=== PATIENT | male | born 1940 ===

== ENCOUNTER 2021-09-17 08:20 | Inpatient (IN) | payer MEDICARE, OTHER, SELFPAY ==
[2021-09-17] VITALS (49 sets, daily range): BP systolic 146–216; BP diastolic 66–108; PULSE 54–89; RESP 10–47; TEMP 36.3; O2SAT 89–100; BMI 29.0
--- NOTE | 2021-09-17 08:24 | DI.RAD.S_ITS ---
PROCEDURE: XR HIP W PEL IF DONE RT 2V INDICATIONS: pain and deformity after fall TECHNIQUE: AP pelvis with lateral view(s) of the right hip(s). COMPARISON: [facility], CR, XR PELVIS W BILAT LAT HIPS 3VW, 07/13/2015, 14:19. [facility], CR, XR PELVIS WITH LATERAL HIP RIGHT, 07/03/2017, 14:40. [facility], CT, CT HEAD/BRAIN WO CON, 09/17/2021, 8:36. FINDINGS: Bones: No fractures or dislocations. Pelvic ring appears intact. No suspicious bony lesions. Age-appropriate lower lumbar spine degenerative changes are noted. Right hip arthroplasty hardware is seen. No findings of hardware failure or hardware loosening are seen. Relatively prominent heterotopic bone formation can be seen. The right greater trochanter, which is similar to priors. There is moderate superior joint space narrowing seen of left hip, with associated remodeling changes with subchondral sclerosis and osteophyte formation. Soft tissues: The visualized bowel gas pattern is normal. No suspicious soft tissue calcifications. Residual contrast is seen of the plantar swallowing examination dated 09/15/2021. Central pelvis calcifications seen. IMPRESSION: Unremarkable right hip arthroplasty. Moderate left hip degenerative change. Residual enteric contrast is seen. Dictated by: Luis Antonio Kirk M.D. on 09/17/2021 at 8:00 Approved by: Luis Antonio Kirk M.D. on 09/17/2021 at 8:02
--- NOTE | 2021-09-17 08:30 | DI.CT.S_ITS ---
PROCEDURE: CT HEAD/BRAIN WO CON INDICATIONS: fall on thinners TECHNIQUE: Noncontrast 4.5 mm thick angled axial sections acquired from the foramen magnum to the vertex, with coronal and sagittal reformats. For radiation dose reduction, the following was used: automated exposure control, adjustment of mA and/or kV according to patient size. COMPARISON: [facility], MR, MR BRAIN WITHOUT CONTRAST, 02/05/2020, 15:14. [facility], CT, CT HEAD WITHOUT CONTRAST, 04/28/2020, 18:09. [facility], CT, CT HEAD WITHOUT CONTRAST, 06/01/2020, 6:10. [facility], CR, XR HIP W PEL IF DONE RT 2V, 09/17/2021, 8:16. [facility], CT, CT HEAD WITHOUT CONTRAST, 05/27/2021, 5:26. FINDINGS: Image quality: Excellent. CSF spaces: Basal cisterns are patent. No extra-axial fluid collections. The ventricles are symmetric in size and shape. Brain: No intracranial bleeds or masses. There is cerebral volume loss for age, with resultant ventricular and sulcal prominence. There are periventricular and deep white matter chronic small vessel ischemic changes. There is intracranial internal carotid artery atherosclerosis. Skull and face: Calvarium and visualized facial bones appear intact, without suspicious lesions. Sinuses: Visualized sinuses and mastoids are clear. IMPRESSION: No acute intracranial hemorrhage is seen. No acute intracranial process is seen. Note is made of age-appropriate brain parenchymal volume loss and chronic small vessel ischemic changes. Dictated by: Luis Antonio Kirk M.D. on 09/17/2021 at 8:04 Approved by: Luis Antonio Kirk M.D. on 09/17/2021 at 8:07
--- NOTE | 2021-09-17 08:35 | ED.LOWEXIN ---
HPI - Extremity Injury (Lower) General Chief Complaint: Extremity Injury, Lower Stated Complaint: Rt. Hip deformity Time Seen by Provider: 09/17/21 08:24 Source: patient and EMS Mode of arrival: EMS Limitations: other (Dementia) History of Present Illness HPI Narrative: Patient is an 81-year-old male. Has a POLST form that states DNR we with comfort measures. Brought in by EMS after his Life Alert button was activated this morning after fall. Patient does live at home with his . Patient states that he fell this morning. He is unsure exactly how he fell. He reports right hip pain. He received 10 mg of morphine and 4 mg of Zofran in route by EMS. Patient states he did not hit his head. He is somewhat confused about where he is and what date it is but he does know his month and date. He also knows his name. He denies chest pain and shortness of breath and abdominal pain. His only complaint is right hip pain. EMS reports that his blood pressure was elevated this morning with a systolic greater than 200 however this did improve after pain medication by EMS crew. Was reported that he was recently admitted to [facility] and discharged within the past 24-48 hours. We are waiting on records for this. Related Data Home Medications Medication Instructions Recorded Confirmed albuterol sulfate 90 mcg/actuation 90 mcg INHALATION PRN 09/17/21 09/17/21 aerosol inhaler (ProAir HFA) amoxicillin 875 mg-potassium 1 tab PO BID 09/17/21 09/17/21 clavulanate 125 mg tablet atorvastatin 20 mg tablet (Lipitor) 20 mg PO DAILY 09/17/21 09/17/21 carvedilol 25 mg tablet (Coreg) 25 mg PO BIDWMEAL 09/17/21 09/17/21 digoxin 125 mcg (0.125 mg) tablet 125 mcg PO DAILY 09/17/21 09/17/21 (Lanoxin) empagliflozin 10 mg tablet 10 mg PO DAILY 09/17/21 09/17/21 (Jardiance) ferrous sulfate 325 mg (65 mg 325 mg PO BID 09/17/21 09/17/21 iron) tablet furosemide 40 mg tablet (Lasix) 40 mg PO DAILY 09/17/21 09/17/21 ipratropium bromide 17 2 puff INHALATION TID 09/17/21 09/17/21 mcg/actuation HFA aerosol inhaler (Atrovent HFA) losartan 50 mg tablet (Cozaar) 50 mg PO DAILY 09/17/21 09/17/21 memantine 10 mg tablet (Namenda) 10 mg PO BID 09/17/21 09/17/21 metformin 500 mg tablet 500 mg PO BIDWMEAL 09/17/21 09/17/21 rivaroxaban 20 mg tablet (Xarelto) 20 mg PO DAILY 09/17/21 09/17/21 sertraline 100 mg tablet (Zoloft) 100 mg PO DAILY 09/17/21 09/17/21 umeclidinium 62.5 mcg/actuation 62.5 inh INHALATION DAILY 09/17/21 09/17/21 blister powder for inhalation (Incruse Ellipta) Allergies Allergy/AdvReac Type Severity Reaction Status Date / Time No Known Drug Allergies Allergy Verified 09/17/21 13:04 Review of Systems Constitutional Comments: Denies headache Cardiovascular Comments: Denies chest pain Respiratory Comments: Denies shortness of breath Gastrointestinal Comments: Denies abdominal pain Musculoskeletal Comments: Does have right hip pain Neurologic Comments: Unsure if he is change from baseline mental status Hematologic/Lymphatic On Anticoagulants: Yes Patient History Medical History Congestive heart failure Diabetes Paroxysmal atrial fibrillation Social History (Updated 09/17/21 @ 08:39 by Delmar Meza DO) marital status: lives independently: Yes Exam Initial Vital Signs Initial Vital Signs: Vital Signs Temperature 97.4 F L 09/17/21 08:28 Pulse Rate 77 09/17/21 08:28 Respiratory Rate 18 09/17/21 08:28 Blood Pressure 183/70 H 09/17/21 08:28 Pulse Oximetry 95 09/17/21 08:28 Const General: cooperative, comfortable and No ill appearing HENMT Head: normal to inspection and normocephalic Face and sinus: normal facial exam Eyes General: Yes appearance normal, both eyes and all related structures Resp Effort & Inspection: normal respiratory effort Auscultation: clear to auscultation bilaterally Cardio Rate: regular rate Rhythm: regular rhythm Pulses: dorsalis pedis present bilaterally GI Inspection: normal to inspection Palpation: soft Skin Other: Multiple abrasions and skin wounds. Has a bandage over his right forearm Neuro Other: Patient does move all 4 extremities but very limited movement of right lower extremity because right hip pain. He is alert to person and date and somewhat of the situation but not to the year. Speech is normal. Extrem Other: Upper extremities unremarkable. Patient can wiggle toes bilaterally. Limited range of motion and pain to palpation right hip Psych Appearance: disheveled Scores GCS [place] coma scale eye opening: To sound [place] coma scale verbal response: Confused Jamal coma scale motor response: Obey commands [place] coma scale total score: 13 Course Orders Ordered: ED Orders 09/17/21 08:24 XR hip w pel if done RT 2V Stat 09/17/21 08:30 CT head/brain wo con Stat 09/17/21 08:32 BNP [NT-proBNP (BNP-Adult 18+)] Stat Complete Blood Count AUTO DIFF Stat Comprehensive Metabolic Panel Stat Lipase Stat Troponin & CK Cardiac Panel Stat 09/17/21 09:02 COVID19 -Nasal RAPID/Pre-Proc Stat 09/17/21 09:03 Partial Thromboplastin Time Stat Prothrombin Time INR Stat Type and Screen Stat 09/17/21 09:18 XR knee RT 3V Stat 09/17/21 10:18 ABG [Arterial Blood Gas] Stat 09/17/21 10:20 XR chest 1V Stat 09/17/21 10:21 Consult to LAUNDRY [employer] CLE[employer] COUNTER CLERK - Cleaner Stat Consult to Orthopedic Surgery Stat 09/17/21 10:44 BiPAP Ventilatory Support RT PROTOCOL 09/17/21 11:33 CT pelvis wo con Stat Acetaminophen (Acetaminophen 325 Mg Tablet) 650 mg PO Q6HR PRN PRN Reason: pain, fever Albuterol/Ipratropium (Albuterol/Ipratropium 3 Ml Ampul) 3 ml INH RTQ4HR PRN PRN Reason: Shortness Of Breath Furosemide (Furosemide 40 Mg/4 Ml Vial) 40 mg IV Q12HR PATY Last Admin: 09/17/21 13:51 Dose: 40 mg Documented by: LISA Piperacillin Sod/Tazobactam (Sod 3.375 gm/ Sodium Chloride) 100 mls @ 25 mls/hr IV Q8H PATY Azithromycin 500 mg/ Dextrose 250 mls @ 250 mls/hr IV Q24H PATY Vancomycin HCl (Vancomycin) 1,250 mg in 250 mls @ 250 mls/hr IV Q12H PATY Last Admin: 09/17/21 14:33 Dose: 250 mls/hr Documented by: LISA Methylprednisolone (Methylprednisolone 125 Mg/2 Ml Vial) 60 mg IV DAILY [facility] Vancomycin HCl (Vancomycin Trough) 1 request MISC 1330 ONE Stop: 09/19/21 13:31 Vancomycin HCl (Vancomycin Peak) 1 request MISC 1600 ONE Stop: 09/19/21 16:01 Discontinued Medications Furosemide (Furosemide 40 Mg/4 Ml Vial) 40 mg IV NOW ONE Stop: 09/17/21 11:34 Last Admin: 09/17/21 13:57 Dose: Not Given Documented by: LISA Sodium Chloride (Normal Saline 0.9%) 1,000 mls @ 100 mls/hr IV CONT [facility] Last Infusion: 09/17/21 12:00 Dose: 0 mls/hr Documented by: Admin: 09/17/21 09:01 Dose: 100 mls/hr Documented by: WILBERT Piperacillin Sod/Tazobactam (Sod 4.5 gm/ Sodium Chloride) 100 mls @ 200 mls/hr IV NOW ONE Stop: 09/17/21 13:29 Last Infusion: 09/17/21 14:33 Dose: 0 mls/hr Documented by: Admin: 09/17/21 13:58 Dose: 200 mls/hr Documented by: LISA Methylprednisolone (Methylprednisolone 125 Mg/2 Ml Vial) 125 mg IV NOW ONE Stop: 09/17/21 11:34 Last Admin: 09/17/21 13:51 Dose: 125 mg Documented by: LISA Vital Signs Vital signs: Vital Signs - 8 hr 09/17/21 08:28 09/17/21 08:32 09/17/21 08:56 Temperature 97.4 F L Pulse Rate 77 67 66 Respiratory Rate 18 26 H Blood Pressure 183/70 H 181/76 H Pulse Oximetry 95 95 95 09/17/21 09:00 09/17/21 09:30 09/17/21 09:55 Temperature Pulse Rate 73 70 67 Respiratory Rate 26 H 22 13 Blood Pressure 184/87 H Pulse Oximetry 95 96 95 09/17/21 10:00 09/17/21 10:30 09/17/21 10:31 Temperature Pulse Rate 77 72 79 Respiratory Rate 21 25 H 20 Blood Pressure 197/92 H Pulse Oximetry 95 98 98 09/17/21 10:40 09/17/21 10:42 09/17/21 11:00 Temperature Pulse Rate 68 71 72 Respiratory Rate 22 22 18 Blood Pressure 216/93 H 196/108 H 213/99 H Pulse Oximetry 98 97 98 09/17/21 11:30 09/17/21 11:31 09/17/21 12:00 Temperature Pulse Rate 63 66 89 Respiratory Rate 20 20 17 Blood Pressure 175/78 H 179/80 H Pulse Oximetry 97 97 98 09/17/21 12:20 Temperature 97.4 F L Pulse Rate 70 Respiratory Rate 29 H Blood Pressure 181/82 H Pulse Oximetry 98 MDM - Extremity Injury (Lower) Lab Data Attestation: I reviewed the patient's lab results. Result diagrams: 09/17/21 08:32 09/17/21 08:32 Labs: Lab Results 09/17/21 09/17/21 09/17/21 Range/Units 08:32 08:32 08:32 WBC 11.8 H (4.5-11.0) X10^3/uL RBC 5.99 H (4.5-5.9) X10^6/uL Hgb 16.6 (13.5-17.5) g/dL Hct 50.0 (41-53) % MCV 83.4 (80-100) fL MCH 27.8 (26-34) PG MCHC 33.3 (30-36) % RDW 16.1 H (11.6-14.8) % Plt Count 234 (150-400) X10^3/uL Neut % (Auto) 74.6 (50-75) % Lymph % (Auto) 12.5 L (25-40) % [place] % (Auto) 9.0 (3-14) % Eos % (Auto) 3.4 (2-4) % Baso % (Auto) 0.5 (0-2) % Neut # (Auto) 8800 H (8938-3263) /uL Lymph # (Auto) 1500 (1662-4103) /uL [place] # (Auto) 1100 H (0-900) /uL Eos # (Auto) 400 (0-450) /uL Baso # (Auto) 100 (0-100) /uL PT (10.1-12.7) SECONDS INR (0.9-1.3) APTT (26.4-36.2) SECONDS ABG pH (7.35-7.45) ABG pCO2 (35-45) mmHg ABG pO2 (80-100) mmHg ABG HCO3 (22-26) mmol/L ABG Total CO2 (21-31) mmol/L ABG O2 Saturation (95-100) % ABG Base Excess (-2-2) mmol/L FiO2 Sodium 145 (137-145) mmol/L Potassium 3.6 (3.4-5.1) mmol/L Chloride 106 (98-107) mmol/L Carbon Dioxide 30 (22-32) mmol/L BUN 19 (9-20) mg/dL Creatinine 0.71 (0.66-1.25) mg/dL Estimated GFR > 60 (>60) mL/min BUN/Creatinine Ratio 26.8 H (6-22) Glucose 146 H (80-110) mg/dL Calcium 9.6 (8.4-10.2) mg/dL Total Bilirubin 1.2 (0.2-1.3) mg/dL AST 24 (17-59) IU/L ALT 16 (<50) IU/L Alkaline Phosphatase 90 (38-126) U/L Total Creatine Kinase (55-170) U/L CK-MB (CK-2) CK-MB (CK-2) Rel Index Troponin I (0.01-0.034) ng/mL NT-Pro-B Natriuret Pep 4980 H (<450) pg/mL Total Protein 7.6 (6.3-8.2) g/dL Albumin 4.5 (3.5-5.0) g/dL Globulin 3.1 (1.7-4.1) g/dL Albumin/Globulin Ratio 1.5 (1.0-2.8) Lipase 206 (23-300) U/L Procalcitonin (<0.5) ng/mL SARS-CoV-2 (PCR) (Negative) Blood Type Antibody Screen 09/17/21 09/17/21 09/17/21 Range/Units 08:32 09:02 09:03 WBC (4.5-11.0) X10^3/uL RBC (4.5-5.9) X10^6/uL Hgb (13.5-17.5) g/dL Hct (41-53) % MCV (80-100) fL MCH (26-34) PG MCHC (30-36) % RDW (11.6-14.8) % Plt Count (150-400) X10^3/uL Neut % (Auto) (50-75) % Lymph % (Auto) (25-40) % [place] % (Auto) (3-14) % Eos % (Auto) (2-4) % Baso % (Auto) (0-2) % Neut # (Auto) (7760-5410) /uL Lymph # (Auto) (2173-2155) /uL [place] # (Auto) (0-900) /uL Eos # (Auto) (0-450) /uL Baso # (Auto) (0-100) /uL PT 18.7 H (10.1-12.7) SECONDS INR 1.7 H (0.9-1.3) APTT 43 H (26.4-36.2) SECONDS ABG pH (7.35-7.45) ABG pCO2 (35-45) mmHg ABG pO2 (80-100) mmHg ABG HCO3 (22-26) mmol/L ABG Total CO2 (21-31) mmol/L ABG O2 Saturation (95-100) % ABG Base Excess (-2-2) mmol/L FiO2 Sodium (137-145) mmol/L Potassium (3.4-5.1) mmol/L Chloride (98-107) mmol/L Carbon Dioxide (22-32) mmol/L BUN (9-20) mg/dL Creatinine (0.66-1.25) mg/dL Estimated GFR (>60) mL/min BUN/Creatinine Ratio (6-22) Glucose (80-110) mg/dL Calcium (8.4-10.2) mg/dL Total Bilirubin (0.2-1.3) mg/dL AST (17-59) IU/L ALT (<50) IU/L Alkaline Phosphatase (38-126) U/L Total Creatine Kinase 76 (55-170) U/L CK-MB (CK-2) TNP CK-MB (CK-2) Rel Index TNP Troponin I 0.037 H (0.01-0.034) ng/mL NT-Pro-B Natriuret Pep (<450) pg/mL Total Protein (6.3-8.2) g/dL Albumin (3.5-5.0) g/dL Globulin (1.7-4.1) g/dL Albumin/Globulin Ratio (1.0-2.8) Lipase (23-300) U/L Procalcitonin (<0.5) ng/mL SARS-CoV-2 (PCR) Negative (Negative) Blood Type Antibody Screen 09/17/21 09/17/21 09/17/21 Range/Units 09:03 10:07 10:18 WBC (4.5-11.0) X10^3/uL RBC (4.5-5.9) X10^6/uL Hgb (13.5-17.5) g/dL Hct (41-53) % MCV (80-100) fL MCH (26-34) PG MCHC (30-36) % RDW (11.6-14.8) % Plt Count (150-400) X10^3/uL Neut % (Auto) (50-75) % Lymph % (Auto) (25-40) % [place] % (Auto) (3-14) % Eos % (Auto) (2-4) % Baso % (Auto) (0-2) % Neut # (Auto) (4338-0562) /uL Lymph # (Auto) (1557-1666) /uL [place] # (Auto) (0-900) /uL Eos # (Auto) (0-450) /uL Baso # (Auto) (0-100) /uL PT (10.1-12.7) SECONDS INR (0.9-1.3) APTT (26.4-36.2) SECONDS ABG pH 7.28 L* (7.35-7.45) ABG pCO2 57.0 H (35-45) mmHg ABG pO2 86 (80-100) mmHg ABG HCO3 27 H (22-26) mmol/L ABG Total CO2 29 (21-31) mmol/L ABG O2 Saturation 95 (95-100) % ABG Base Excess 0.0 (-2-2) mmol/L FiO2 28 Sodium (137-145) mmol/L Potassium (3.4-5.1) mmol/L Chloride (98-107) mmol/L Carbon Dioxide (22-32) mmol/L BUN (9-20) mg/dL Creatinine (0.66-1.25) mg/dL Estimated GFR (>60) mL/min BUN/Creatinine Ratio (6-22) Glucose (80-110) mg/dL Calcium (8.4-10.2) mg/dL Total Bilirubin (0.2-1.3) mg/dL AST (17-59) IU/L ALT (<50) IU/L Alkaline Phosphatase (38-126) U/L Total Creatine Kinase (55-170) U/L CK-MB (CK-2) CK-MB (CK-2) Rel Index Troponin I (0.01-0.034) ng/mL NT-Pro-B Natriuret Pep (<450) pg/mL Total Protein (6.3-8.2) g/dL Albumin (3.5-5.0) g/dL Globulin (1.7-4.1) g/dL Albumin/Globulin Ratio (1.0-2.8) Lipase (23-300) U/L Procalcitonin 0.07 (<0.5) ng/mL SARS-CoV-2 (PCR) (Negative) Blood Type B Positive Antibody Screen Negative Imaging Data Extremity x-ray #1: Radiologist's Impression: [address] [address] XRay Report Signed Patient: Tulio Wright MR#: [id number] : 1940 Acct:[id number] Age/Sex: 81 / M Date of Service: 09/17/21 Loc: ED Accession Number: [id number] ?? Procedure: XR hip w pel if done RT 2V Ordering Provider: Delmar Meza D.O. PROCEDURE:? XR HIP W PEL IF DONE RT 2V ? INDICATIONS:? pain and deformity after fall ? TECHNIQUE:? AP pelvis with lateral view(s) of the right hip(s).? ? COMPARISON:? [facility], CR, XR PELVIS W BILAT LAT HIPS 3VW, 07/13/2015, 14:19.? [facility], CR, XR PELVIS WITH LATERAL HIP RIGHT, 07/03/2017, 14:40.? [facility], CT, CT HEAD/BRAIN WO CON, 09/17/2021, 8:36. ? FINDINGS:? ? Bones:? No fractures or dislocations.? Pelvic ring appears intact.? No suspicious bony lesions.? Age-appropriate lower lumbar spine degenerative changes are noted. ? Right hip arthroplasty hardware is seen.? No findings of hardware failure or hardware loosening are seen.? Relatively prominent heterotopic bone formation can be seen.? The right greater trochanter, which is similar to priors. ? There is moderate superior joint space narrowing seen of left hip, with associated remodeling changes with subchondral sclerosis and osteophyte formation.? ? ? Soft tissues:? The visualized bowel gas pattern is normal.? No suspicious soft tissue calcifications.? Residual contrast is seen of the plantar swallowing examination dated 09/15/2021.? Central pelvis calcifications seen. ? ? IMPRESSION:? Unremarkable right hip arthroplasty. ? Moderate left hip degenerative change. ? Residual enteric contrast is seen. ? ? ? Dictated by: Luis Antonio Kirk M.D. on 09/17/2021 at 8:00 ? ? Approved by: Luis Antonio Kirk M.D. on 09/17/2021 at 8:02? CT scan - head: Radiologist's Impression: [place] [address] CT Scan Report Signed Patient: Tulio Wright MR#: [id number] : 1940 Acct:[id number] Age/Sex: 81 / M Date of Service: 09/17/21 Loc: ED Accession Number: [id number] ?? Procedure: CT head/brain wo con Ordering Provider: Delmar Meza D.O. PROCEDURE:? CT HEAD/BRAIN WO CON ? INDICATIONS:? fall on thinners ? TECHNIQUE:? Noncontrast 4.5 mm thick angled axial sections acquired from the foramen magnum to the vertex, with coronal and sagittal reformats.? For radiation dose reduction, the following was used:? automated exposure control, adjustment of mA and/or kV according to patient size.? ? COMPARISON:? [facility], MR, MR BRAIN WITHOUT CONTRAST, 02/05/2020, 15:14.? [facility], CT, CT HEAD WITHOUT CONTRAST, 04/28/2020, 18:09.? [facility], CT, CT HEAD WITHOUT CONTRAST, 06/01/2020, 6:10.? [facility], CR, XR HIP W PEL IF DONE RT 2V, 09/17/2021, 8:16.? [facility], CT, CT HEAD WITHOUT CONTRAST, 05/27/2021, 5:26. ? FINDINGS:? Image quality:? Excellent.? ? CSF spaces:? Basal cisterns are patent.? No extra-axial fluid collections.? The ventricles are symmetric in size and shape.? ? Brain:? No intracranial bleeds or masses.? There is cerebral volume loss for age, with resultant ventricular and sulcal prominence.? There are periventricular and deep white matter chronic small vessel ischemic changes.? There is intracranial internal carotid artery atherosclerosis.? ? Skull and face:? Calvarium and visualized facial bones appear intact, without suspicious lesions.? ? Sinuses:? Visualized sinuses and mastoids are clear.? ? ? IMPRESSION:? No acute intracranial hemorrhage is seen.? ? No acute intracranial process is seen.? ? Note is made of age-appropriate brain parenchymal volume loss and chronic small vessel ischemic changes. ? ? Dictated by: Luis Antonio Kirk M.D. on 09/17/2021 at 8:04 ? ? Approved by: Luis Antonio Kirk M.D. on 09/17/2021 at 8:07 Extremity x-ray #2: Radiologist's Impression: [place] [address] XRay Report Signed Patient: Tulio Wright MR#: [id number] : 1940 Acct:[id number] Age/Sex: 81 / M Date of Service: 09/17/21 Loc: ED Accession Number: [id number] ?? Procedure: XR knee RT 3V Ordering Provider: Delmar Meza D.O. PROCEDURE:? XR KNEE RT 3V ? INDICATIONS:? pain after fall ? TECHNIQUE:? 3 views of the knee were acquired.? ? COMPARISON:? [facility], CR, XR KNEE BILATERAL STANDING UP, 12/05/2015, 15:42.? [facility], CR, XR KNEE 3VW LT, 01/14/2017, 10:28.? [facility], CR, XR KNEE BILATERAL STANDING UP, 12/25/2016, 15:48.? [facility], CR, XR KNEE 1 OR 2VW RT, 12/25/2016, 15:48. ? FINDINGS:? ? Bones:? Along the superior lateral aspect of the patella, there is a chronic cleft seen, which has been previously identified, including in 2017.? No acute appearing fractures or dislocations.? No suspicious bony lesions.? ? There is mild medial femorotibial joint space narrowing seen, with associated remodeling changes including subchondral sclerosis and osteophyte formation along the jointline.? On the sunrise view, there is at least moderate patellofemoral joint space narrowing seen. Osteophyte formation can be seen along the margins of the patella. ? Soft tissues:? There is a minimal to mild joint effusion.? No suspicious soft tissue calcifications.? ? ? IMPRESSION:? Minimal to mild joint effusion. ? No jase, acute bony abnormality can be seen. ? 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 ? Underlying degenerative changes are seen. ? If it would be helpful for clinical management decision making, please consider a dedicated, scheduled knee MRI for further evaluation (assuming that there is no contraindication).? ? ? Dictated by: Luis Antonio Kirk M.D. on 09/17/2021 at 8:59 ? ? Approved by: Luis Antonio Kirk M.D. on 09/17/2021 at 9:03? Chest x-ray: Radiologist's Impression: [address] [address] XRay Report Signed Patient: Tulio Wright MR#: [id number] : 1940 Acct:[id number] Age/Sex: 81 / M Date of Service: 09/17/21 Loc: ED Accession Number: [id number] ?? Procedure: XR chest 1V Ordering Provider: Delmar Meza D.O. PROCEDURE:? XR CHEST 1V ? INDICATIONS:? Short of breath ? TECHNIQUE:? One view of the chest was acquired.? ? COMPARISON:? [facility], CR, XR CHEST 1 VIEW, 05/27/2021, 6:10.? [facility], CR, XR CHEST 1 VIEW, 09/12/2021, 10:55.? [facility], CR, XR CHEST 1 VIEW, 09/13/2021, 14:26. ? FINDINGS:? ? Surgical changes and devices:? None.? ? Lungs and pleura:? An incomplete inspiratory result is noted, causing a crowded appearance to the lung markings.? No focal infiltrates are seen.? No pneumothorax or significant pleural effusions are seen. ? ? Mediastinum:? Mediastinal contours appear normal.? Heart size is mildly to moderately enlarged.? ? Bones and chest wall:? No suspicious bony lesions.? Age-appropriate bony degenerative changes are seen. ? Overlying soft tissues appear unremarkable.? ? ? IMPRESSION:? Low lung volumes, without a significant pulmonary abnormality seen. ? [id number] cardiomegaly again seen. ? ? ? Dictated by: Luis Antonio Kirk M.D. on 09/17/2021 at 9:36 ? ? Approved by: Luis Antonio Kirk M.D. on 09/17/2021 at 9:3 MDM Narrative Medical decision making narrative: Patient was very somnolent upon arrival. Was not hypoxic. ABG shows respiratory acidosis. He is placed on BiPAP and he tolerated this very well. I did have a discussion with the patient's over the phone. She did confirm that the patient is a DNR/DNI however she was O care with the noninvasive BiPAP. Patient's x-ray show no acute injury however he does seem to the continue to have significant discomfort with movement of his right hip. I did discuss this with Dr. Elizalde with Orthopedics who recommended a CT scan of his pelvis. Given the patient's respiratory status he does require admission to the hospital for further evaluation. Discussed the case with Dr. Christian with medicine service who will admit for further evaluation and treatment. I did discuss the need for admission with the patient's who also expressed understanding and agreement. Discharge Plan Departure Patient Disposition: Admitted as Observation Clinical Impression: Acute pain of right hip, Hypoxia, Fall, Confusion Admit Date/Time: 09/17/21 12:24 Admit Provider: Brien Christian
[2021-09-17 08:37] LABS: Add Manual Diff / Slide Review NO; Basophils Absolute Auto 100 /uL (0-100); Basophils Percent Auto 0.5 % (0-2); Eosinophils Absolute Auto 400 /uL (0-450); Eosinophils Percent Auto 3.4 % (2-4); Hemoglobin 16.6 g/dL (13.5-17.5); Lymphocytes Absolute Auto 1500 /uL (1100-4500); Lymphocytes Percent Auto 12.5 % (25-40); Mean Corpuscular HGB Conc 33.3 % (30-36); Mean Corpuscular Hemoglobin 27.8 PG (26-34); Mean Corpuscular Volume 83.4 fL (80-100); Monocytes Absolute Auto 1100 /uL (0-900); Neutrophils Absolute Auto 8800 /uL (1500-7000); Neutrophils Percent Auto 74.6 % (50-75); Platelet Count 234 X10^3/uL (150-400); Red Blood Cell Count 5.99 X10^6/uL (4.5-5.9); Red Cell Distribution Width 16.1 % (11.6-14.8); White Blood Cell Count 11.8 X10^3/uL (4.5-11.0)
[2021-09-17 08:50] LABS: Alanine Aminotransferase 16 IU/L (<50); Albumin 4.5 g/dL (3.5-5.0); Albumin Globulin Ratio 1.5 (1.0-2.8); Alkaline Phosphatase 90 U/L (38-126); Aspartate Aminotransferase 24 IU/L (17-59); BUN Creatinine Ratio 26.8 (6-22); Bilirubin Total 1.2 mg/dL (0.2-1.3); Blood Urea Nitrogen 19 mg/dL (9-20); Calcium 9.6 mg/dL (8.4-10.2); Carbon Dioxide 30 mmol/L (22-32); Chloride 106 mmol/L (98-107); Estimated Glomerular Filt Rate > 60 mL/min (>60); Globulin 3.1 g/dL (1.7-4.1); Glucose 146 mg/dL (80-110); HEMOLYSIS 18 (0-50); Lipase 206 U/L (23-300); Potassium 3.6 mmol/L (3.4-5.1); Sodium 145 mmol/L (137-145); Total Protein 7.6 g/dL (6.3-8.2)
[2021-09-17] MEDS: SODIUM CHLORIDE 0.9% 1,000 ML 100 ML IV (09:01)
--- NOTE | 2021-09-17 09:18 | DI.RAD.S_ITS ---
PROCEDURE: XR KNEE RT 3V INDICATIONS: pain after fall TECHNIQUE: 3 views of the knee were acquired. COMPARISON: [facility], CR, XR KNEE BILATERAL STANDING UP, 12/05/2015, 15:42. [facility], CR, XR KNEE 3VW LT, 01/14/2017, 10:28. [facility], CR, XR KNEE BILATERAL STANDING UP, 12/25/2016, 15:48. [facility], CR, XR KNEE 1 OR 2VW RT, 12/25/2016, 15:48. 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 No acute appearing fractures or dislocations. No suspicious bony lesions. There is mild medial femorotibial joint space narrowing seen, with associated remodeling changes including subchondral sclerosis and osteophyte formation along the jointline. On the sunrise view, there is at least moderate patellofemoral joint space narrowing seen. Osteophyte formation can be seen along the margins of the patella. Soft tissues: There is a minimal to mild joint effusion. No suspicious soft tissue calcifications. IMPRESSION: Minimal to mild joint effusion. No jase, acute bony abnormality can be seen. 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 Underlying degenerative changes are seen. If it would be helpful for clinical management decision making, please consider a dedicated, scheduled knee MRI for further evaluation (assuming that there is no contraindication). Dictated by: Luis Antonio Kirk M.D. on 09/17/2021 at 8:59 Approved by: Luis Antonio Kirk M.D. on 09/17/2021 at 9:03
[2021-09-17 09:21] LABS: COVID19 -Nasal RAPID Negative (Negative)
[2021-09-17 09:24] LABS: INR 1.7 (0.9-1.3); Prothrombin Time 18.7 SECONDS (10.1-12.7)
[2021-09-17 09:27] LABS: PTT Partial Thromboplastin Tim 43 SECONDS (26.4-36.2)
--- NOTE | 2021-09-17 09:35 | PC.NURSE ---
pain increased when turning leg/knee inward or trying to bend/unbend knee for additional xrays
--- NOTE | 2021-09-17 10:20 | DI.RAD.S_ITS ---
PROCEDURE: XR CHEST 1V INDICATIONS: Short of breath TECHNIQUE: One view of the chest was acquired. COMPARISON: [facility], CR, XR CHEST 1 VIEW, 05/27/2021, 6:10. [facility], CR, XR CHEST 1 VIEW, 09/12/2021, 10:55. [facility], CR, XR CHEST 1 VIEW, 09/13/2021, 14:26. FINDINGS: Surgical changes and devices: None. Lungs and pleura: An incomplete inspiratory result is noted, causing a crowded appearance to the lung markings. No focal infiltrates are seen. No pneumothorax or significant pleural effusions are seen. Mediastinum: Mediastinal contours appear normal. Heart size is mildly to moderately enlarged. Bones and chest wall: No suspicious bony lesions. Age-appropriate bony degenerative changes are seen. Overlying soft tissues appear unremarkable. IMPRESSION: Low lung volumes, without a significant pulmonary abnormality seen. [id number] cardiomegaly again seen. Dictated by: Luis Antonio Kirk M.D. on 09/17/2021 at 9:36 Approved by: Luis Antonio Kirk M.D. on 09/17/2021 at 9:37
--- NOTE | 2021-09-17 10:50 | PC.NURSE ---
see RT charging for BIPAP in AVAP's mode, 28% FiO2 delivery
[2021-09-17 10:52] LABS: Fractionated Inspired Oxygen 28; HCO3 ABG 27 mmol/L (22-26); Oxygen Saturation ABG 95 % (95-100); PO2 ABG 86 mmHg (80-100); TCO2 ABG 29 mmol/L (21-31)
[2021-09-17 10:58] LABS: Creatine Kinase 76 U/L (55-170)
--- NOTE | 2021-09-17 10:59 | RT ---
BIPAP AVAPS mode: targeted VT 550, RR 16, IPAP min 12, IPAP max 25, fio2 28%. Pt wears 2L NC at baseline. Has CPAP at home but unsure if he is compliant and unsure of settings.
[2021-09-17 11:08] LABS: NT-proBNP (BNP-Adult 18+) 4980 pg/mL (<450)
[2021-09-17 11:10] LABS: Troponin I 0.037 ng/mL (0.01-0.034)
--- NOTE | 2021-09-17 11:33 | DI.CT.S_ITS ---
PROCEDURE: CT PEL WO CON INDICATIONS: R hip pain after fall no fx on XR Ortho wants CT TECHNIQUE: Noncontrast 3 mm axial sections acquired through the bony pelvis, with coronal and sagittal reformatting. COMPARISON: [facility], CR, XR PELVIS W BILAT LAT HIPS 3VW, 07/13/2015, 14:19. [facility], CR, XR HIP W PEL IF DONE RT 2V, 09/17/2021, 8:16. [facility], CR, XR CHEST 1V, 09/17/2021, 10:22. FINDINGS: Image quality: There is artifact associated with the metallic hardware. Artifact from the metallic hardware is reduced by metal reconstruction algorithm. Bones: Right hip arthroplasty hardware is seen. No findings of hardware failure or hardware loosening are seen. No fractures of the bones of the pelvis can be seen. No proximal femur fracture can be seen. No dislocation. Relatively prominent heterotopic bone formation can be seen superior to the right greater trochanter, which is similar to prior plain films. There is irregular bone seen along the lateral aspect of the left acetabulum as well. Age-appropriate lower lumbar spine degenerative changes are noted. Soft tissues: Residual contrast can be seen within the colon. No dilated loops of small bowel are seen. A mild periumbilical hernia is seen, containing fat. No free air or significant free fluid can be seen. Prostate clips are seen. Bilateral fat containing inguinal hernias are seen, left larger than right. Atherosclerotic calcification is noted. IMPRESSION: No acute fractures are seen. Right hip arthroplasty hardware, without complication seen. Relatively prominent heterotopic bone formation is seen superior to the right greater trochanter. Stable abnormal bony overgrowth can be seen involving the lateral aspect the left acetabulum. Incidental note is made of: Fat containing periumbilical hernia Prostate clips Fat containing bilateral inguinal hernias Residual contrast within the colon Dictated by: Luis Antonio Kirk M.D. on 09/17/2021 at 11:27 Approved by: Luis Antonio Kirk M.D. on 09/17/2021 at 11:32
--- NOTE | 2021-09-17 12:25 | PM.CN ---
History of Present Illness Consult details Date Patient Seen: 09/17/21 Time Patient Seen: 12:10 Chief complaint: Rt. 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 He had a fall today. He was brought in by EMS with problems with right hip pain. He also has multiple medical problems. He is a DNR patient who was having some respiratory difficulties. Was evaluated in the emergency room and had CT scan and plain x-rays of his pelvis were obtained. Meds Home Medications and Allergies Home Medications Medication Instructions Recorded Confirmed Type albuterol sulfate 90 mcg/actuation 90 mcg INHALATION PRN 09/17/21 09/17/21 History aerosol inhaler (ProAir HFA) amoxicillin 875 mg-potassium 1 tab PO BID 09/17/21 09/17/21 History clavulanate 125 mg tablet atorvastatin 20 mg tablet (Lipitor) 20 mg PO DAILY 09/17/21 09/17/21 History carvedilol 25 mg tablet (Coreg) 25 mg PO BIDWMEAL 09/17/21 09/17/21 History digoxin 125 mcg (0.125 mg) tablet 125 mcg PO DAILY 09/17/21 09/17/21 History (Lanoxin) empagliflozin 10 mg tablet 10 mg PO DAILY 09/17/21 09/17/21 History (Jardiance) ferrous sulfate 325 mg (65 mg 325 mg PO BID 09/17/21 09/17/21 History iron) tablet furosemide 40 mg tablet (Lasix) 40 mg PO DAILY 09/17/21 09/17/21 History ipratropium bromide 17 2 puff INHALATION TID 09/17/21 09/17/21 History mcg/actuation HFA aerosol inhaler (Atrovent HFA) losartan 50 mg tablet (Cozaar) 50 mg PO DAILY 09/17/21 09/17/21 History memantine 10 mg tablet (Namenda) 10 mg PO BID 09/17/21 09/17/21 History metformin 500 mg tablet 500 mg PO BIDWMEAL 09/17/21 09/17/21 History rivaroxaban 20 mg tablet (Xarelto) 20 mg PO DAILY 09/17/21 09/17/21 History sertraline 100 mg tablet (Zoloft) 100 mg PO DAILY 09/17/21 09/17/21 History umeclidinium 62.5 mcg/actuation 62.5 inh INHALATION DAILY 09/17/21 09/17/21 History blister powder for inhalation (Incruse Ellipta) Review of Systems Review of Systems Narrative: He is somnolent but arousable to stimulation review of systems is really not obtainable. Exam Vital Signs (past 8 hours): - 09/17/21 08:28 09/17/21 08:32 09/17/21 08:56 Temperature 97.4 F L Pulse Rate 77 67 66 Respiratory Rate 18 26 H Blood Pressure 183/70 H 181/76 H Pulse Oximetry 95 95 95 09/17/21 09:00 09/17/21 09:30 09/17/21 09:55 Temperature Pulse Rate 73 70 67 Respiratory Rate 26 H 22 13 Blood Pressure 184/87 H Pulse Oximetry 95 96 95 09/17/21 10:00 09/17/21 10:30 09/17/21 10:31 Temperature Pulse Rate 77 72 79 Respiratory Rate 21 25 H 20 Blood Pressure 197/92 H Pulse Oximetry 95 98 98 09/17/21 10:40 09/17/21 10:42 09/17/21 11:00 Temperature Pulse Rate 68 71 72 Respiratory Rate 22 22 18 Blood Pressure 216/93 H 196/108 H 213/99 H Pulse Oximetry 98 97 98 09/17/21 11:30 09/17/21 11:31 Temperature Pulse Rate 63 66 Respiratory Rate 20 20 Blood Pressure 175/78 H Pulse Oximetry 97 97 Fraction of Inspired Oxygen 28 Oxygen Delivery Method BiPAP Oxygen Flow Rate 6 Narrative Exam Narrative: He is on BiPAP but is arousable she does have slight grimacing with range of motion of the right hip, right lower extremity shows no evidence of shortening there is a healed scar, as does mild pain with internal rotation of his right, right knee shows no evidence of a contusion there is no joint effusion there is acceptable alignment and no crepitation with range of motion, skin is intact no obvious significant soft tissue swelling Objective Labs Result Diagrams: 09/17/21 08:32 09/17/21 08:32 Labs: Laboratory Results - last 24 hr 09/17/21 09/17/21 09/17/21 08:32 08:32 08:32 WBC 11.8 H RBC 5.99 H Hgb 16.6 Hct 50.0 MCV 83.4 MCH 27.8 MCHC 33.3 RDW 16.1 H Plt Count 234 Neut % (Auto) 74.6 Lymph % (Auto) 12.5 L [place] % (Auto) 9.0 Eos % (Auto) 3.4 Baso % (Auto) 0.5 Neut # (Auto) 8800 H Lymph # (Auto) 1500 [place] # (Auto) 1100 H Eos # (Auto) 400 Baso # (Auto) 100 PT INR APTT ABG pH ABG pCO2 ABG pO2 ABG HCO3 ABG Total CO2 ABG O2 Saturation ABG Base Excess FiO2 Sodium 145 Potassium 3.6 Chloride 106 Carbon Dioxide 30 BUN 19 Creatinine 0.71 Estimated GFR > 60 BUN/Creatinine Ratio 26.8 H Glucose 146 H Calcium 9.6 Total Bilirubin 1.2 AST 24 ALT 16 Alkaline Phosphatase 90 Total Creatine Kinase CK-MB (CK-2) CK-MB (CK-2) Rel Index Troponin I NT-Pro-B Natriuret Pep 4980 H Total Protein 7.6 Albumin 4.5 Globulin 3.1 Albumin/Globulin Ratio 1.5 Lipase 206 SARS-CoV-2 (PCR) Blood Type Antibody Screen 09/17/21 09/17/21 09/17/21 08:32 09:02 09:03 WBC RBC Hgb Hct MCV MCH MCHC RDW Plt Count Neut % (Auto) Lymph % (Auto) [place] % (Auto) Eos % (Auto) Baso % (Auto) Neut # (Auto) Lymph # (Auto) [place] # (Auto) Eos # (Auto) Baso # (Auto) PT 18.7 H INR 1.7 H APTT 43 H ABG pH ABG pCO2 ABG pO2 ABG HCO3 ABG Total CO2 ABG O2 Saturation ABG Base Excess FiO2 Sodium Potassium Chloride Carbon Dioxide BUN Creatinine Estimated GFR BUN/Creatinine Ratio Glucose Calcium Total Bilirubin AST ALT Alkaline Phosphatase Total Creatine Kinase 76 CK-MB (CK-2) TNP CK-MB (CK-2) Rel Index TNP Troponin I 0.037 H NT-Pro-B Natriuret Pep Total Protein Albumin Globulin Albumin/Globulin Ratio Lipase SARS-CoV-2 (PCR) Negative Blood Type Antibody Screen 09/17/21 09/17/21 09:03 10:18 WBC RBC Hgb Hct MCV MCH MCHC RDW Plt Count Neut % (Auto) Lymph % (Auto) [place] % (Auto) Eos % (Auto) Baso % (Auto) Neut # (Auto) Lymph # (Auto) [place] # (Auto) Eos # (Auto) Baso # (Auto) PT INR APTT ABG pH 7.28 L* ABG pCO2 57.0 H ABG pO2 86 ABG HCO3 27 H ABG Total CO2 29 ABG O2 Saturation 95 ABG Base Excess 0.0 FiO2 28 Sodium Potassium Chloride Carbon Dioxide BUN Creatinine Estimated GFR BUN/Creatinine Ratio Glucose Calcium Total Bilirubin AST ALT Alkaline Phosphatase Total Creatine Kinase CK-MB (CK-2) CK-MB (CK-2) Rel Index Troponin I NT-Pro-B Natriuret Pep Total Protein Albumin Globulin Albumin/Globulin Ratio Lipase SARS-CoV-2 (PCR) Blood Type B Positive Antibody Screen Negative x-rays AP pelvis shows a right total hip arthroplasty with no evidence of fracture or dislocation there is acceptable overall alignment, there is moderate heterotopic ossification, 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 He obviously has multiple other medical problems currently. He may have an occult pelvic or acetabular fracture which was not visualized on the plain radiograph. It might be reasonable to get a CT scan of his pelvis if his medical conditions stabilized. Time Spent With Patient Critical Care time: I spent a total of [] minutes of critical care time on this patient's care today; this time is exclusive of procedural time.
[2021-09-17 13:00] LABS: HCO3 ABG 26 mmol/L (22-26); PCO2 ABG 51.1 mmHg (35-45); PO2 ABG 87 mmHg (80-100); pH ABG 7.31 (7.35-7.45)
[2021-09-17 13:01] LABS: Fractionated Inspired Oxygen 28; Oxygen Saturation ABG 96 % (95-100); TCO2 ABG 27 mmol/L (21-31)
[2021-09-17 13:18] LABS: Procalcitonin 0.07 ng/mL (<0.5)
[2021-09-17] MEDS: FUROSEMIDE 40 MG/4 ML VIAL IV ×2 (13:51→20:42)
[2021-09-17] MEDS: methylPREDNISolone 125 MG/2 ML VIAL IV (13:51)
--- NOTE | 2021-09-17 13:55 | P.TELICUCN_ITS ---
History of Present Illness Consult details Chief complaint: Rt. Hip deformity :: This patient was seen via real time interactive two-way audiovisual telecommunication. seen pt on bipap more awake [facility] Medical History Congestive heart failure Diabetes Paroxysmal atrial fibrillation Social History (Updated 09/17/21 @ 08:39 by Delmar Meza DO) marital status: lives independently: Yes Current Medications Current Medications Medications: Home Medications albuterol sulfate 90 mcg/actuation aerosol inhaler (ProAir HFA) 90 mcg INHALATION PRN 09/17/21 [History Confirmed 09/17/21] amoxicillin 875 mg-potassium clavulanate 125 mg tablet 1 tab PO BID 09/17/21 [ History Confirmed 09/17/21] atorvastatin 20 mg tablet (Lipitor) 20 mg PO DAILY 09/17/21 [History Confirmed 09/17/21] carvedilol 25 mg tablet (Coreg) 25 mg PO BIDWMEAL 09/17/21 [History Confirmed 09/17/21] digoxin 125 mcg (0.125 mg) tablet (Lanoxin) 125 mcg PO DAILY 09/17/21 [History Confirmed 09/17/21] empagliflozin 10 mg tablet (Jardiance) 10 mg PO DAILY 09/17/21 [History Confirmed 09/17/21] ferrous sulfate 325 mg (65 mg iron) tablet 325 mg PO BID 09/17/21 [History Confirmed 09/17/21] furosemide 40 mg tablet (Lasix) 40 mg PO DAILY 09/17/21 [History Confirmed 09/17/21] ipratropium bromide 17 mcg/actuation HFA aerosol inhaler (Atrovent HFA) 2 puff INHALATION TID 09/17/21 [History Confirmed 09/17/21] losartan 50 mg tablet (Cozaar) 50 mg PO DAILY 09/17/21 [History Confirmed 09/17/21] memantine 10 mg tablet (Namenda) 10 mg PO BID 09/17/21 [History Confirmed 09/17/21] metformin 500 mg tablet 500 mg PO BIDWMEAL 09/17/21 [History Confirmed 09/17/21] rivaroxaban 20 mg tablet (Xarelto) 20 mg PO DAILY 09/17/21 [History Confirmed 09/17/21] sertraline 100 mg tablet (Zoloft) 100 mg PO DAILY 09/17/21 [History Confirmed 09/17/21] umeclidinium 62.5 mcg/actuation blister powder for inhalation (Incruse Ellipta) 62.5 inh INHALATION DAILY 09/17/21 [History Confirmed 09/17/21] Visit Medications (administered) Generic Name Dose Route Start Last Admin Trade Name Freq PRN Reason Stop Dose Admin Furosemide 40 mg 09/17/21 21:00 09/17/21 13:51 Furosemide 40 Mg/4 Ml Vial IV 40 mg Q12HR PATY Administration Exam Vital Signs (past 8 hours): - 09/17/21 08:28 09/17/21 08:32 09/17/21 08:56 Temperature 97.4 F L Pulse Rate 77 67 66 Respiratory Rate 18 26 H Blood Pressure 183/70 H 181/76 H Pulse Oximetry 95 95 95 09/17/21 09:00 09/17/21 09:30 09/17/21 09:55 Temperature Pulse Rate 73 70 67 Respiratory Rate 26 H 22 13 Blood Pressure 184/87 H Pulse Oximetry 95 96 95 09/17/21 10:00 09/17/21 10:30 09/17/21 10:31 Temperature Pulse Rate 77 72 79 Respiratory Rate 21 25 H 20 Blood Pressure 197/92 H Pulse Oximetry 95 98 98 09/17/21 10:40 09/17/21 10:42 09/17/21 11:00 Temperature Pulse Rate 68 71 72 Respiratory Rate 22 22 18 Blood Pressure 216/93 H 196/108 H 213/99 H Pulse Oximetry 98 97 98 09/17/21 11:30 09/17/21 11:31 09/17/21 12:00 Temperature Pulse Rate 63 66 89 Respiratory Rate 20 20 17 Blood Pressure 175/78 H 179/80 H Pulse Oximetry 97 97 98 09/17/21 12:20 09/17/21 12:48 09/17/21 12:50 Temperature 97.4 F L Pulse Rate 70 63 60 Respiratory Rate 29 H 33 H 28 H Blood Pressure 181/82 H 164/72 H Pulse Oximetry 98 97 96 09/17/21 13:00 09/17/21 13:25 Temperature Pulse Rate 62 Respiratory Rate 33 H Blood Pressure 146/66 H Pulse Oximetry 96 97 Fraction of Inspired Oxygen 28 Oxygen Delivery Method BiPAP Oxygen Flow Rate 6 Objective Labs Result Diagrams: 09/17/21 08:32 09/17/21 08:32 Labs: Laboratory Results - last 24 hr 09/17/21 09/17/21 09/17/21 08:32 08:32 08:32 WBC 11.8 H RBC 5.99 H Hgb 16.6 Hct 50.0 MCV 83.4 MCH 27.8 MCHC 33.3 RDW 16.1 H Plt Count 234 Neut % (Auto) 74.6 Lymph % (Auto) 12.5 L [place] % (Auto) 9.0 Eos % (Auto) 3.4 Baso % (Auto) 0.5 Neut # (Auto) 8800 H Lymph # (Auto) 1500 [place] # (Auto) 1100 H Eos # (Auto) 400 Baso # (Auto) 100 PT INR APTT ABG pH ABG pCO2 ABG pO2 ABG HCO3 ABG Total CO2 ABG O2 Saturation ABG Base Excess FiO2 Sodium 145 Potassium 3.6 Chloride 106 Carbon Dioxide 30 BUN 19 Creatinine 0.71 Estimated GFR > 60 BUN/Creatinine Ratio 26.8 H Glucose 146 H Calcium 9.6 Total Bilirubin 1.2 AST 24 ALT 16 Alkaline Phosphatase 90 Total Creatine Kinase CK-MB (CK-2) CK-MB (CK-2) Rel Index Troponin I NT-Pro-B Natriuret Pep 4980 H Total Protein 7.6 Albumin 4.5 Globulin 3.1 Albumin/Globulin Ratio 1.5 Lipase 206 Procalcitonin SARS-CoV-2 (PCR) Blood Type Antibody Screen 09/17/21 09/17/21 09/17/21 08:32 09:02 09:03 WBC RBC Hgb Hct MCV MCH MCHC RDW Plt Count Neut % (Auto) Lymph % (Auto) [place] % (Auto) Eos % (Auto) Baso % (Auto) Neut # (Auto) Lymph # (Auto) [place] # (Auto) Eos # (Auto) Baso # (Auto) PT 18.7 H INR 1.7 H APTT 43 H ABG pH ABG pCO2 ABG pO2 ABG HCO3 ABG Total CO2 ABG O2 Saturation ABG Base Excess FiO2 Sodium Potassium Chloride Carbon Dioxide BUN Creatinine Estimated GFR BUN/Creatinine Ratio Glucose Calcium Total Bilirubin AST ALT Alkaline Phosphatase Total Creatine Kinase 76 CK-MB (CK-2) TNP CK-MB (CK-2) Rel Index TNP Troponin I 0.037 H NT-Pro-B Natriuret Pep Total Protein Albumin Globulin Albumin/Globulin Ratio Lipase Procalcitonin SARS-CoV-2 (PCR) Negative Blood Type Antibody Screen 09/17/21 09/17/21 09/17/21 09:03 10:07 10:18 WBC RBC Hgb Hct MCV MCH MCHC RDW Plt Count Neut % (Auto) Lymph % (Auto) [place] % (Auto) Eos % (Auto) Baso % (Auto) Neut # (Auto) Lymph # (Auto) [place] # (Auto) Eos # (Auto) Baso # (Auto) PT INR APTT ABG pH 7.28 L* ABG pCO2 57.0 H ABG pO2 86 ABG HCO3 27 H ABG Total CO2 29 ABG O2 Saturation 95 ABG Base Excess 0.0 FiO2 28 Sodium Potassium Chloride Carbon Dioxide BUN Creatinine Estimated GFR BUN/Creatinine Ratio Glucose Calcium Total Bilirubin AST ALT Alkaline Phosphatase Total Creatine Kinase CK-MB (CK-2) CK-MB (CK-2) Rel Index Troponin I NT-Pro-B Natriuret Pep Total Protein Albumin Globulin Albumin/Globulin Ratio Lipase Procalcitonin 0.07 SARS-CoV-2 (PCR) Blood Type B Positive Antibody Screen Negative 09/17/21 12:50 WBC RBC Hgb Hct MCV MCH MCHC RDW Plt Count Neut % (Auto) Lymph % (Auto) [place] % (Auto) Eos % (Auto) Baso % (Auto) Neut # (Auto) Lymph # (Auto) [place] # (Auto) Eos # (Auto) Baso # (Auto) PT INR APTT ABG pH 7.31 L ABG pCO2 51.1 H ABG pO2 87 ABG HCO3 26 ABG Total CO2 27 ABG O2 Saturation 96 ABG Base Excess 0.0 FiO2 28 Sodium Potassium Chloride Carbon Dioxide BUN Creatinine Estimated GFR BUN/Creatinine Ratio Glucose Calcium Total Bilirubin AST ALT Alkaline Phosphatase Total Creatine Kinase CK-MB (CK-2) CK-MB (CK-2) Rel Index Troponin I NT-Pro-B Natriuret Pep Total Protein Albumin Globulin Albumin/Globulin Ratio Lipase Procalcitonin SARS-CoV-2 (PCR) Blood Type Antibody Screen Assessment & Plan Assessment & Plan narrative: patient seen with bedside nurse ,darryl/ primar admitting physican chartlabs/imaging reivewed 81 year old male on comfort care dnr/dni fell and has right hip pain recieved morphine with ems now iwth hypercaneic resp failure on bipap afebrile, HD stable cxr showed congestion suggest -address goals of care with family -if comfort care ok with opiods otherwise suggest to avoid opiods/benzos -nebs/steroids -diuretics -abx -check cxs -monitor ins.outs -keep glcuose 140-180s -please call eICU prn Time Spent With Patient Critical Care time: I spent a total of [] minutes of critical care time on this patient's care today; this time is exclusive of procedural time.
[2021-09-17] MEDS: PIPERACILLIN/TAZO 4.5 GM in SODIUM CHLORIDE 0.9% 100 ML 200 ML IV (13:58)
[2021-09-17] MEDS: VANCOMYCIN 1,250 MG/250 ML PIGGYBACK 250 MG IV (14:33)
[2021-09-17] MEDS: AZITHROMYCIN 500 MG in DEXTROSE 5% IN WATER 250 ML IV (16:37)
--- NOTE | 2021-09-17 17:40 | P.HP_ITS ---
History of Present Illness History of Present Illness Date Patient Seen: 09/17/21 Time Patient Seen: 13:00 Chief complaint: Rt. Hip deformity Narrative: Mr. Wright is a 81M with PMH CHF, COPD on home O2, HATTIE on CPAP, afib on xarelto, DM who presents to the hospital after a fall with right hip pain. He was quite confused and unable to provide a history. Some history was obtained by ED from EMS and , who is not present. Apparently patient was recently admitt ed to another hospital with weakness and aspiration pneumonia, discharged on augmentin. He had a fall but is unable to say how he fell. EMS arrived and administered morphine for his pain. In the ED workup was done, vitals notable for elevated blood pressure. Labs notable for WBC 11.8, hgb 16.6, plts 234. creatinine 0.71. BNP 4980. INR 1.7. Trop 0.037. COVID negative. ABG shows pH 7.28, pco2 57. Procal 0.07. Chest xray showed low lung volumes with cardiomegaly. Right hip xray showed no acute pro cess. Knee xray showed no acute process but slight joint effusion. Pelvic CT showed no acute process. Head CT showed no acute process. He was ordered for IV zosyn, IV lasix, methylpred. He was placed on BIPAP. His notes he is a DNR. He was admitte for further treatment Family history: unable to obtain due to encephalopathy Patient History Medical History Congestive heart failure Diabetes Paroxysmal atrial fibrillation Family & Social History Social History: lives independently Yes Safety & Behavioral: Feels Safe in Current Yes Environment Been Physically Hurt or No Threatened By a Person Meds Home Medications and Allergies Home Medications Medication Instructions Recorded Confirmed Type albuterol sulfate 90 mcg/actuation 90 mcg INHALATION PRN 09/17/21 09/17/21 History aerosol inhaler (ProAir HFA) amoxicillin 875 mg-potassium 1 tab PO BID 09/17/21 09/17/21 History clavulanate 125 mg tablet atorvastatin 20 mg tablet (Lipitor) 20 mg PO DAILY 09/17/21 09/17/21 History carvedilol 25 mg tablet (Coreg) 25 mg PO BIDWMEAL 09/17/21 09/17/21 History digoxin 125 mcg (0.125 mg) tablet 125 mcg PO DAILY 09/17/21 09/17/21 History (Lanoxin) empagliflozin 10 mg tablet 10 mg PO DAILY 09/17/21 09/17/21 History (Jardiance) ferrous sulfate 325 mg (65 mg 325 mg PO BID 09/17/21 09/17/21 History iron) tablet furosemide 40 mg tablet (Lasix) 40 mg PO DAILY 09/17/21 09/17/21 History ipratropium bromide 17 2 puff INHALATION TID 09/17/21 09/17/21 History mcg/actuation HFA aerosol inhaler (Atrovent HFA) losartan 50 mg tablet (Cozaar) 50 mg PO DAILY 09/17/21 09/17/21 History memantine 10 mg tablet (Namenda) 10 mg PO BID 09/17/21 09/17/21 History metformin 500 mg tablet 500 mg PO BIDWMEAL 09/17/21 09/17/21 History rivaroxaban 20 mg tablet (Xarelto) 20 mg PO DAILY 09/17/21 09/17/21 History sertraline 100 mg tablet (Zoloft) 100 mg PO DAILY 09/17/21 09/17/21 History umeclidinium 62.5 mcg/actuation 62.5 inh INHALATION DAILY 09/17/21 09/17/21 History blister powder for inhalation (Incruse Ellipta) Allergies Allergy/AdvReac Type Severity Reaction Status Date / Time No Known Drug Allergies Allergy Verified 09/17/21 13:04 Review of Systems Review of Systems Narrative: unable to obtain due to encephalopathy Exam Vital Signs (past 8 hours): - 09/17/21 09:55 09/17/21 10:00 09/17/21 10:30 Temperature Pulse Rate 67 77 72 Respiratory Rate 13 21 25 H Blood Pressure 184/87 H Pulse Oximetry 95 95 98 09/17/21 10:31 09/17/21 10:40 09/17/21 10:42 Temperature Pulse Rate 79 68 71 Respiratory Rate 20 22 22 Blood Pressure 197/92 H 216/93 H 196/108 H Pulse Oximetry 98 98 97 09/17/21 11:00 09/17/21 11:30 09/17/21 11:31 Temperature Pulse Rate 72 63 66 Respiratory Rate 18 20 20 Blood Pressure 213/99 H 175/78 H Pulse Oximetry 98 97 97 09/17/21 12:00 09/17/21 12:20 09/17/21 12:48 Temperature 97.4 F L Pulse Rate 89 70 63 Respiratory Rate 17 29 H 33 H Blood Pressure 179/80 H 181/82 H Pulse Oximetry 98 98 97 09/17/21 12:50 09/17/21 13:00 09/17/21 13:25 Temperature Pulse Rate 60 62 Respiratory Rate 28 H 33 H Blood Pressure 164/72 H 146/66 H Pulse Oximetry 96 96 97 09/17/21 13:30 09/17/21 14:00 09/17/21 14:01 Temperature Pulse Rate 59 L 59 L 58 L Respiratory Rate 32 H 37 H 40 H Blood Pressure 169/73 H Pulse Oximetry 95 96 96 09/17/21 14:30 09/17/21 15:00 09/17/21 15:30 Temperature Pulse Rate 54 L 60 66 Respiratory Rate 32 H 29 H 25 H Blood Pressure 159/70 H Pulse Oximetry 97 96 89 L 09/17/21 16:00 09/17/21 16:30 09/17/21 17:00 Temperature Pulse Rate 57 L 60 61 Respiratory Rate 35 H 24 25 H Blood Pressure 149/67 H 152/68 H Pulse Oximetry 95 94 95 Fraction of Inspired Oxygen 28 Oxygen Delivery Method BiPAP Oxygen Flow Rate 6 Narrative Exam Narrative: GEN: mild respiratory distress, trying to take off bipap HEENT: moist mucous membranes, PERRL NECK: trachea midline, no JVD CV: regular rate and rhythm, no murmurs PULM: decreased breath sounds ABD: soft, nontender, nondistended, no organomegaly EXT: warm and well perfused with no edema NEURO: more alert on bipap, able to follow simple commands, able to move all extremities Objective Labs Result Diagrams: 09/17/21 08:32 09/17/21 08:32 Labs: Laboratory Results - last 24 hr 09/17/21 09/17/21 09/17/21 08:32 08:32 08:32 WBC 11.8 H RBC 5.99 H Hgb 16.6 Hct 50.0 MCV 83.4 MCH 27.8 MCHC 33.3 RDW 16.1 H Plt Count 234 Neut % (Auto) 74.6 Lymph % (Auto) 12.5 L Charles % (Auto) 9.0 Eos % (Auto) 3.4 Baso % (Auto) 0.5 Neut # (Auto) 8800 H Lymph # (Auto) 1500 Charles # (Auto) 1100 H Eos # (Auto) 400 Baso # (Auto) 100 PT INR APTT ABG pH ABG pCO2 ABG pO2 ABG HCO3 ABG Total CO2 ABG O2 Saturation ABG Base Excess FiO2 Sodium 145 Potassium 3.6 Chloride 106 Carbon Dioxide 30 BUN 19 Creatinine 0.71 Estimated GFR > 60 BUN/Creatinine Ratio 26.8 H Glucose 146 H Calcium 9.6 Total Bilirubin 1.2 AST 24 ALT 16 Alkaline Phosphatase 90 Total Creatine Kinase CK-MB (CK-2) CK-MB (CK-2) Rel Index Troponin I NT-Pro-B Natriuret Pep 4980 H Total Protein 7.6 Albumin 4.5 Globulin 3.1 Albumin/Globulin Ratio 1.5 Lipase 206 Procalcitonin SARS-CoV-2 (PCR) Blood Type Antibody Screen 09/17/21 09/17/21 09/17/21 08:32 09:02 09:03 WBC RBC Hgb Hct MCV MCH MCHC RDW Plt Count Neut % (Auto) Lymph % (Auto) Charles % (Auto) Eos % (Auto) Baso % (Auto) Neut # (Auto) Lymph # (Auto) Charles # (Auto) Eos # (Auto) Baso # (Auto) PT 18.7 H INR 1.7 H APTT 43 H ABG pH ABG pCO2 ABG pO2 ABG HCO3 ABG Total CO2 ABG O2 Saturation ABG Base Excess FiO2 Sodium Potassium Chloride Carbon Dioxide BUN Creatinine Estimated GFR BUN/Creatinine Ratio Glucose Calcium Total Bilirubin AST ALT Alkaline Phosphatase Total Creatine Kinase 76 CK-MB (CK-2) TNP CK-MB (CK-2) Rel Index TNP Troponin I 0.037 H NT-Pro-B Natriuret Pep Total Protein Albumin Globulin Albumin/Globulin Ratio Lipase Procalcitonin SARS-CoV-2 (PCR) Negative Blood Type Antibody Screen 09/17/21 09/17/21 09/17/21 09:03 10:07 10:18 WBC RBC Hgb Hct MCV MCH MCHC RDW Plt Count Neut % (Auto) Lymph % (Auto) Charles % (Auto) Eos % (Auto) Baso % (Auto) Neut # (Auto) Lymph # (Auto) Charles # (Auto) Eos # (Auto) Baso # (Auto) PT INR APTT ABG pH 7.28 L* ABG pCO2 57.0 H ABG pO2 86 ABG HCO3 27 H ABG Total CO2 29 ABG O2 Saturation 95 ABG Base Excess 0.0 FiO2 28 Sodium Potassium Chloride Carbon Dioxide BUN Creatinine Estimated GFR BUN/Creatinine Ratio Glucose Calcium Total Bilirubin AST ALT Alkaline Phosphatase Total Creatine Kinase CK-MB (CK-2) CK-MB (CK-2) Rel Index Troponin I NT-Pro-B Natriuret Pep Total Protein Albumin Globulin Albumin/Globulin Ratio Lipase Procalcitonin 0.07 SARS-CoV-2 (PCR) Blood Type B Positive Antibody Screen Negative 09/17/21 12:50 WBC RBC Hgb Hct MCV MCH MCHC RDW Plt Count Neut % (Auto) Lymph % (Auto) Charles % (Auto) Eos % (Auto) Baso % (Auto) Neut # (Auto) Lymph # (Auto) Charles # (Auto) Eos # (Auto) Baso # (Auto) PT INR APTT ABG pH 7.31 L ABG pCO2 51.1 H ABG pO2 87 ABG HCO3 26 ABG Total CO2 27 ABG O2 Saturation 96 ABG Base Excess 0.0 FiO2 28 Sodium Potassium Chloride Carbon Dioxide BUN Creatinine Estimated GFR BUN/Creatinine Ratio Glucose Calcium Total Bilirubin AST ALT Alkaline Phosphatase Total Creatine Kinase CK-MB (CK-2) CK-MB (CK-2) Rel Index Troponin I NT-Pro-B Natriuret Pep Total Protein Albumin Globulin Albumin/Globulin Ratio Lipase Procalcitonin SARS-CoV-2 (PCR) Blood Type Antibody Screen Assessment & Plan Assessment & Plan narrative: 1. Acute hypercarbic respiratory failure and acute encephalopathy -likely respiratory failure a combination of CO2 retention from COPD exacerba tion from recent pneumonia and possibly causing mild CHF exacerbation -treat with steroids, nebulizers and azithromycin for COPD exacerbation -given recent history of aspiration and recnet hospitalization, ordered for zosyn, vanco -continue gentle diuresis with IV lasix -consider ECHO depending on how his symptoms respond -follow up cultures 2. Atrial fibrillation, chronic -contine xarelto -continue coreg, digoxin 3. Hypertension -hold losartan for now, continue coreg 4. Type 2 Diabetes -hold metfomrin -glucose check achs -ordered for insulin sliding scale 5. Depresison -continue sertraline CODE: DNR/DNI, has POLST confirming Proxy: Linda Wright, I have utilized all available resources to reconcile the patient's home medications Time Spent With Patient Critical Care time: I spent a total of [] minutes of critical care time on this patient's care today; this time is exclusive of procedural time.
[2021-09-17] MEDS: PIPERACILLIN/TAZO 3.375 GM in SODIUM CHLORIDE 0.9% 100 ML 25 ML IV (18:00)
--- NOTE | 2021-09-17 19:34 | PC.ADMIT ---
[address] Admission Note: The patient,Tulio Wright,81 y/o, was given written information regarding hospital policies, unit procedures and contact persons. Patient's smoking status: . Vital Signs - 8 hr 09/17/21 12:00 09/17/21 12:20 09/17/21 12:48 Temperature 97.4 F L Pulse Rate 89 70 63 Respiratory Rate 17 29 H 33 H Blood Pressure 179/80 H 181/82 H Pulse Oximetry 98 98 97 09/17/21 12:50 09/17/21 13:00 09/17/21 13:25 Temperature Pulse Rate 60 62 Respiratory Rate 28 H 33 H Blood Pressure 164/72 H 146/66 H Pulse Oximetry 96 96 97 09/17/21 13:30 09/17/21 14:00 09/17/21 14:01 Temperature Pulse Rate 59 L 59 L 58 L Respiratory Rate 32 H 37 H 40 H Blood Pressure 169/73 H Pulse Oximetry 95 96 96 09/17/21 14:30 09/17/21 15:00 09/17/21 15:30 Temperature Pulse Rate 54 L 60 66 Respiratory Rate 32 H 29 H 25 H Blood Pressure 159/70 H Pulse Oximetry 97 96 89 L 09/17/21 16:00 09/17/21 16:30 09/17/21 17:00 Temperature Pulse Rate 57 L 60 61 Respiratory Rate 35 H 24 25 H Blood Pressure 149/67 H 152/68 H Pulse Oximetry 95 94 95 09/17/21 17:30 09/17/21 18:00 09/17/21 18:01 Temperature Pulse Rate 60 64 64 Respiratory Rate 27 H 27 H 40 H Blood Pressure 182/79 H Pulse Oximetry 95 94 94 09/17/21 18:30 09/17/21 19:00 09/17/21 19:30 Temperature Pulse Rate 66 70 70 Respiratory Rate 28 H 33 H 24 Blood Pressure Pulse Oximetry 95 96 95 Patient admitted to ICU on bipap from ED under hospitalists care around 1210. Patient is A/Ox1, will open his eyes when his name is shouted in his ear. TeleICU doctor aware of admit. Patient on IV abx, lasix, and solumedrol. Per RT patient becomes apneic when not on bipap settings. Unable to reach for background information. POLST in chart. Bed alarm on, unable to use call light, in view of nursing station.
[2021-09-17] MEDS: INSULIN LISPRO 100 UNIT/ML 3ML VIAL SUBCUT (20:41)
--- NOTE | 2021-09-17 21:29 | PM.ICURNDS ---
- :: This patient was seen via real time interactive two-way audiovisual telecommunication. admitted for hypercarbic resp failure whileo n comfort care, currently on bipap. can continue current management, but would clarfy GOC with , as bipap and current tx dosent seem to be in line with previous GOC. remains DNR/I.
[2021-09-17] MEDS: MORPHINE 4 MG/ML INJ IV (22:09)
[2021-09-18] VITALS (53 sets, daily range): BP systolic 130–210; BP diastolic 58–115; PULSE 73–93; RESP 10–72; TEMP 36.4–37.3; O2SAT 88–100
--- NOTE | 2021-09-18 00:42 | PC.NURSE ---
Addendum entered by Meera Arrington R.N. 09/18/21 06:14: Pt on room air sats 97%. Pt asking for water. Oral swabs used frequently, oral care with lemon glycerine swabs. Swallow eval per speech therapy requested. Pt coughs with just the small amount of water in sponge swabs. Becoming agitated due to NPO status, calling out for water. Addendum entered by Meera Arrington R.N. 09/18/21 03:24: 0300 Pt placed on 1L NC, alert and oriented to time, date, person and place. Maintaining O2 Sats 96-97%. Medicated for pain as needed. Original Note: Pt remains on bipap 10/5 FiO2 decreased from 50% to 35%. Pt trying to cough against the bipap, encouraged to relax and breathe normally. C/O dry mouth and throat, oral care done without much relief. Swallowing small amounts of water causes pt to cough.
[2021-09-18] MEDS: VANCOMYCIN 1,250 MG/250 ML PIGGYBACK 250 MG IV (01:07)
[2021-09-18] MEDS: PIPERACILLIN/TAZO 3.375 GM in SODIUM CHLORIDE 0.9% 100 ML 25 ML IV ×3 (02:33→18:15)
[2021-09-18] MEDS: MORPHINE 4 MG/ML INJ IV ×4 (02:41→17:04)
[2021-09-18 05:35] LABS: Add Manual Diff / Slide Review NO; Basophils Absolute Auto 0 /uL (0-100); Basophils Percent Auto 0.2 % (0-2); Eosinophils Absolute Auto 0 /uL (0-450); Hematocrit 49.2 % (41-53); Hemoglobin 16.4 g/dL (13.5-17.5); Lymphocytes Absolute Auto 700 /uL (1100-4500); Lymphocytes Percent Auto 4.2 % (25-40); Mean Corpuscular HGB Conc 33.4 % (30-36); Mean Corpuscular Hemoglobin 27.6 PG (26-34); Mean Corpuscular Volume 82.7 fL (80-100); Monocytes Absolute Auto 500 /uL (0-900); Monocytes Percent Auto 3.5 % (3-14); Neutrophils Absolute Auto 14500 /uL (1500-7000); Neutrophils Percent Auto 92.1 % (50-75); Platelet Count 224 X10^3/uL (150-400); Red Blood Cell Count 5.96 X10^6/uL (4.5-5.9); Red Cell Distribution Width 16.4 % (11.6-14.8); White Blood Cell Count 15.7 X10^3/uL (4.5-11.0)
[2021-09-18 05:51] LABS: BUN Creatinine Ratio 25.8 (6-22); Blood Urea Nitrogen 24 mg/dL (9-20); Carbon Dioxide 28 mmol/L (22-32); Chloride 108 mmol/L (98-107); Estimated Glomerular Filt Rate > 60 mL/min (>60); Glucose 198 mg/dL (80-110); HEMOLYSIS < 15 (0-50); Potassium 3.6 mmol/L (3.4-5.1); Sodium 146 mmol/L (137-145)
--- NOTE | 2021-09-18 05:55 | RT ---
pt no longer needing avaps mode , placed on s/t mode for the night .
--- NOTE | 2021-09-18 08:22 | PC.NURSE ---
Addendum entered by Yazmin Rinaldi R.N. 09/18/21 10:36: 1000: ST evaluated pt and states is not safe for swallowing at this time. All AM oral meds ehld. Pt unhappy with NPO status, states repeatedly, I am not choking on anything. Just give me a drink of water, dammit! Electrical Cad Designer explained NPO rationale to pt and offered mouth swabs: pt refused. Original Note: 0730: Pt given sip of water to take 0800 dose carvedilol and immediately began choking. Medication held until ST sees pt and gives recommendations.
[2021-09-18] MEDS: INSULIN LISPRO 100 UNIT/ML 3ML VIAL SUBCUT ×4 (08:31→22:16)
--- NOTE | 2021-09-18 08:55 | CM.DANOTE ---
Addendum entered by Crystal Nelson R.N. 09/18/21 13:34: Faxed P.T. note to [facility]. Patient inpatient here at the hospital as of 09-17. Addendum entered by Crystal Nelson R.N. 09/18/21 12:30: Called [facility] and spoke to Sienna regarding patient. Let her know that family is hoping that patient can go there, and spouse was there, thought the care was good. Let Sienna know this. Let her know that patient does have some dementia, has been compliant here at the hospital. She anticipates having some beds open up. Faxing her over over face sheet, ER note, H&P, med sheets. P.T. notes are pending. Let Sienna know that patient was at [facility] and inpatient on 09-15, discharged about 72 hours ago. Addendum entered by Crystal Nelson R.N. 09/18/21 11:26: Patient's spouse, Linda, called back. She stated, she is disabled, was recently at [facility] for a fall. Asked her how she has been able to care for patient. Stated, it's been hard, I know he needs a memory care. Let her know that memory care facilities are expensive, for she wanted him to go into a memory care facility from this hospital. Let her know that this [place] [employer] can attempt a halfway facility, but they are going to want to know about long-term planning. Spouse started to cry. Asked her if she has any other family members that are involved, or are able to assist her with finding a facility. She stated, I have a son named Edmund, but he has a broken knee cap. Confirmed with he that he resides in the [facility]. Spouse was crying, no awareness of looking for any type of facilities for spouse. Was able to contact Edmund Ortiz. His phone number is: [phone]. Confirmed that spouse has been trying to care for patient, unable. They make about $4,000 a month, between the two of them. He indicated that he and spouse have been trying to get their mother to get caregivers in the home, or other options, she hasn't wanted to do so. Son is asking if [facility] may be able to accept, they were pleased with the facility when his mom went there. Let him know that this case manage will contact them today, and will fax referral. They may need to work on vibrating screen operator planning as well for patient. Addendum entered by Crystal Nelson R.N. 09/18/21 10:53: Received some of the notes from [facility]. There is a portion of the notes that indicate that patient has dementia, and that patient had indicated that patient's spouse had indicated that she was experiencing caregiver fatigue, and help with placing patient into a memory care facility. Called Benjamin at [facility] in care management. He indicated, this was never expressed to their social worker aide. Let him know that this was indicated in their notes. Asked him what the discharge plan was from their hospital, and indicated that he was sent home with [facility]. Called Jacinto at [facility] and confirmed that he had just gotten off of the phone with patient's , Linda, and did not tell him that patient is in the hospital. Let Jacinto know that this [place] [employer] has not been able to get in touch with her. Confirmed that patient was ordered RN, P.T, O.T, and speech therapy. Jacinto indicated that he had just talked to her, to try again. Attempted to call spouse again with no answer. Patient will be working with the therapy team, and will see how he does. May start sending out referrals to halfway facilities. Addendum entered by Crystal Nelson R.N. 09/18/21 09:16: Called over at [facility], spoke to Benjamin in care management. Their number is:[phone]. He indicated that patient was in their ER a day, became inpatient on the , and was discharged. He will fax this information over. Asked him for notes, as this [place] [employer] has been unable to get in contact with spouse. Original Note: DCP: Case received, EMR reviewed and met with patient. Introduced self and role. Was able to get minimal information from patient, as he is hard of hearing, and unable to get in contact with spouse as of yet. Was able to complete DCP assessment based upon information obtain in patient's chart. Patient is an 81 year old male who admitted yesterday afternoon to the care of the hospitalist team. PCP: Unknown at this time. Payer: confirmed: Medicare/[employer]. Patient came to the hospital via ambulance secondary to a fall that occurred at home. According to notes, patient was recently at [facility], discharged within the past 24-48 hours. Records are pending. Patient had x-rays of hip/pelvis, no fractures. He had been seen by Dr. Elizalde in ortho as well. Patient has DNR that is comfort. According to notes, patient was at [facility] secondary to weakness, and aspiration pneumonia, on an antibiotics. Patient then fell at home and was brought here. Patient was put on BIPAP, secondary to acute hypercarbic respiratory failure. He also noted confusion secondary to acute encephalopathy. Met with patient in his room. He is alert, laying in bed, hard of hearing, but pleasant. Asked him if this [place] [employer] can call his , and stated, it would be alright. Attempted to reach patient's spouse, Linda, and left her a message to call this case filler for more information. P: Patient is weak, he does have P.T and speech orders. He more than likely will need skilled, but may be observation. May attempt getting in touch with [facility] EMERGENCY TELECOMMUNICATIONS DISPATCHER to see if patient was inpatient at their hospital. Will await hearing back from spouse. Crystal Nelson RN/Wafer Abrading Machine Tender Discharge Planning/Care Management CM Discharge Assessment Start: 09/18/21 08:52 Freq: Status: Active Protocol: Document 09/18/21 08:52 (Rec: 09/18/21 08:55 [id number]) Discharge Planning Assessment Assigned Personal Property Appraiser Crystal Nelson RN/Wafer Abrading Machine Tender Advance Directives? Yes: polst Advance Directives on File Yes History Provided By Patient,Medical Record Prior Living Arrangements House Household Members spouse Type of transporation used prior to Relies on Others admit Is patient alert and oriented? Alert to self and place Needs Assistance With Meal Prep,Home Chores / Shopping DME Already Rented / Owned FWW / Walker Patient/Family Preference Shelter Facility Comment Have not been able to contact spouse Barriers to Discharge Yes Comment Frequent falls, comfort versus skilled, have not been able to contact spouse Discharge Plan Shelter Facility Transportation Arrangement Facility Referrals Initiated Other Additional Comment Awaiting to get in contact with spouse to discuss halfway facilities. Whiteboard Updated in Patient Room with Yes name and ext. # of Personal Property Appraiser Review Status In Process Next Review Type Continued Stay Review
--- NOTE | 2021-09-18 09:45 | PT.IIE ---
Current Diagnoses Pain in right hip (09/17/21) Hypoxemia (09/17/21) Disorientation, unspecified (09/17/21) Unspecified fall, initial encounter (09/17/21) Medical History (Last Reviewed 09/17/21 @ 17:40 by Brien Christian MD) Congestive heart failure Diabetes Paroxysmal atrial fibrillation Physical Therapy Inpatient Evaluation/Re-Eval M1 PT/OT-IP Prior Functional Status Start: 09/18/21 08:24 Freq: NEEDED Status: Active Protocol: Document 09/18/21 09:45 AW (Rec: 09/18/21 10:38 AW [id number]) Medical Review Prior Functional Status Medical History Reviewed Yes Diet/Fluid Consistency NPO Communication Pt is [place]. He is coughing at this encounter. He moans frequently. He is able to make his needs known. Mobility and Gait Pt states he uses a FWW for limited household mobility. He says he is mostly homebound. Activities of Daily Living and IADL's Spouse provides assist with dressing and with sponge baths . Pt has a tub/shower and does not feel safe getting in and out even witho assist. Pt states he needs occasional assist with toileting. Pt's spouse provides medication management. Neither pt nor his spouse drives; they depend on a taxi or other service for transportation. Prior Functional Level (Other details) Pt has a Life Alert worn around his neck. He states he uses a CPAP at night but does not typically use supplemental O2 at home. Social History Household Members spouse Living Arrangements House Number of Floors (Floors) Two Floors Number of Stairs To Enter/Railing? 3 REHAN with narrow bilateral rails. Pt states he uses both rails when entering. 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 He lives in [place] with his , Linda. He has a son, Izaiah, also in but pt states he does not get any assist from him. M2 PT-IP Current Condition Start: 09/18/21 08:24 Freq: NEEDED Status: Active Protocol: Document 09/18/21 09:45 AW (Rec: 09/18/21 13:12 AW [id number]) Physical Therapy Current Condition Current Condition Evaluation Date 09/18/21 M3 PT-IP Subjective Start: 09/18/21 08:24 Freq: NEEDED Status: Active Protocol: Document 09/18/21 09:45 AW (Rec: 09/18/21 13:12 AW [id number]) Subjective Physical Therapy Visit Type Type Initial Evaluation Visit Start Time 09:24 Visit Stop Time 09:45 Total Visit Minutes 21 Notes Co-eval with OT due to pt's poor activity tolerance Number of COMPUTER TAPE LIBRARIAN Visits 0 Physical Therapy Visit Comments Patient Comments Pt is willing to participate with therapy Patient Goals Not stated. Therapy Pain Assessment Pain When Pain Assessed During Mobility Pain Present Pain Present Pain Reported Location r hip Scale Used R hip and back; not quantified M4 PT-IP Mobility and Gait Start: 09/18/21 08:24 Freq: NEEDED Status: Active Protocol: Document 09/18/21 09:45 AW (Rec: 09/18/21 13:12 AW [id number]) PT-Bed Mobility Assessment Supine to Sit Supine to Sit Contact Guard Assistance,Head of Bed Elevated Scooting Scooting to Edge of Bed Contact Guard Assistance PT-Transfer Assessment Sit to and From Stand Sit to and from Stand Minimal Assistance,Moderate Assistance,1 Person Assistance ,Use of Upper Extremities Equipment Transfer Assistive Device Gait Belt,Front Wheeled Walker Orthotic/Prosthetic Devices or Brace: No Transfers Transfer Destination Chair,Toilet Transfer Technique pt ambulated with FWW Transfer Ability Level of Assist Minimal Assistance,Moderate Assistance,1 Person Assistance ,Use of Upper Extremities Comments Mobility Comments Pt was lying in bed as PT and OT arrived. He complained of dry mouth and asked for water. PT had to educate and re- orient pt to NPO status. Pt accepted oral swab but continued to ask for water. BP was 151/72 HR 71 SpO2 95% on room air. He completed supine to sit with HOB at 45 degrees CGA and stood from the bed min A x 1. He used FWW to ambulate to the toilet, transferring mod A and max cues. SpO2 was 93% on RA. He needed mod A to stand from the toilet and was unable to manage his briefs without assist. He used FWW to walk to the chair and sat mod A for controlled descent. Pt was left with OT for further assessment. Gait Assessment Gait Gait Assistance Required: Minimum Assistance,1 Person Assist Distance (Feet) 20 Assistive Devices Assistive Device Gait Belt,Front Wheeled Walker Orthotic/Prosthetic Devices or Brace: No Gait Deviations General Gait Pattern Antalgic,Decreased Stride Length,Decreased Feet Clearance,Wide Based Gait Factors Limiting Gait Function Factors Limiting Gait Function Decreased Activity Tolerance, Decreased Strength,Difficulty Following Directions,Pain,Poor Balance,Poor Safety Awareness Comments Gait Comments See mobility comments for details. Stair Climbing Assessment Comments Stair Climbing Comments Not assessed. PT-Balance Assessment Sitting Balance and Reactions Static Sitting Balance Ability Good Dynamic Sitting Balance Ability Fair Standing Balance and Reactions Static Standing Balance Ability Fair Dynamic Standing Balance Ability Fair Device Used FWW M5 PT-IP Objective Assessments Start: 09/18/21 08:24 Freq: NEEDED Status: Active Protocol: Document 09/18/21 09:45 AW (Rec: 09/18/21 13:28 AW [id number]) Orientation Orientation/Cognition Level of Alertness Confusional State Orientation Name,Year,Situation Language Function Ability Hard of Hearing Safety Awareness Decreased Safety Awareness Memory Description Short Term Impaired Comments Pt was repetitive and tangential in conversation. Gross Range of Motion Lower Extremity ROM Assessment Within Functional Limits Strength Lower Extremity Strength Assessment Bilaterally Impaired Hip 4-/5 Knee 4/5 Sensation Assessment Sensation Gross Sensation WNL Muscle Tone Muscle Tone WNL Yes M6 PT-IP Treatment Start: 09/18/21 08:24 Freq: NEEDED Status: Active Protocol: Document 09/18/21 09:45 AW (Rec: 09/18/21 13:28 AW [id number]) Physical Therapy Treatment Education Education Provided Safety M7 PT-IP Assessment and Plan Start: 09/18/21 08:24 Freq: NEEDED Status: Active Protocol: Document 09/18/21 09:45 AW (Rec: 09/18/21 13:28 AW [id number]) PT Summary Assessment and Plan Potential Rehabilitation Potential Good Status of Condition at Evaluation Evolving Summary Impairments Pain,Strength,Balance, Cognition,Bed Mobility, Transfers,Gait,Activity Tolerance Assessment Summary Tulio is an 81 yo man who was recently discharged from [facility] with aspiration pneumonia and weakness. He went home with home health services and had a fall. He presented to ED with right hip pain, hypercarbic respiratory failure, acute encephalopathy. He states he is modified independent at baseline with use of FWW for household mobility and needs some level of assist with ADL's. On assessment, he required min to mod assist for mobility with FWW. He would benefit from continued acute PT and transition to SNF rehab at discharge to improve strength and mobility independence. Goals Bed Mobility Goal Independent Transfer Goal Standby Assistance,Front Wheeled Walker Gait Goal Standby Assistance,Front Wheel Walker Gait Distance 100 Other Goals - up/down 3 steps with B rails SBA Frequency of Treatment Frequency Of Treatment Once a Day Treatment Plan Physical Therapy Treatment Plan Bed Mobility Training,Transfer Training,Gait Training, Therapeutic Exercise,Balance Retraining,Discharge Planning, Hot or Cold Pack,Neuromuscular Re-ed Precautions Other Precautions falls; hypercarbic (SpO2 target ~92% - check with RN) Recommendations To Nursing Amount of Assist Needed 1 Person Assist Discharge Recommendations PT Discharge Recommendations SNF Rehab Transportation Needs at Discharge Wheelchair/Cabulance
--- NOTE | 2021-09-18 09:56 | OT.IP.EVAL ---
Current Diagnoses Pain in right hip (09/17/21) Hypoxemia (09/17/21) Disorientation, unspecified (09/17/21) Unspecified fall, initial encounter (09/17/21) Past Medical History (Last Reviewed 09/17/21 @ 17:40 by Brien Christian MD) Congestive heart failure Diabetes Paroxysmal atrial fibrillation Occupational Therapy Inpatient Evaluation/Re-Eval M1 PT/OT-IP Prior Functional Status Start: 09/18/21 08:24 Freq: NEEDED Status: Active Protocol: Document 09/18/21 13:41 CGR (Rec: 09/18/21 14:00 CGR [id number]) Medical Review Prior Functional Status Medical History Reviewed Yes Diet/Fluid Consistency NPO Communication Pt is [place]. He is coughing at this encounter. He moans frequently. He is able to make his needs known. Mobility and Gait Pt states he uses a FWW for limited household mobility. He says he is mostly homebound. Activities of Daily Living and IADL's Spouse provides assist with dressing and with sponge baths . Pt has a tub/shower and does not feel safe getting in and out even witho assist. Pt states he needs occasional assist with toileting. Pt's spouse provides medication management. Neither pt nor his spouse drives; they depend on a taxi or other service for transportation. Prior Functional Level (Other details) Pt has a Life Alert worn around his neck. He states he uses a CPAP at night but does not typically use supplemental O2 at home. Social History Household Members spouse Living Arrangements House Number of Floors (Floors) Two Floors Number of Stairs To Enter/Railing? 3 REHAN with narrow bilateral rails. Pt states he uses both rails when entering. 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 He has a son, Izaiah, also in but pt states he does not get any assist from him. M1 PT/OT-IP Prior Functional Status Start: 09/18/21 13:40 Freq: NEEDED Status: Active Protocol: Document 09/18/21 13:41 CGR (Rec: 09/18/21 14:00 [facility] [id number]) Medical Review Prior Functional Status Medical History Reviewed Yes Diet/Fluid Consistency NPO Communication Pt is [place]. He is coughing at this encounter. He moans frequently. He is able to make his needs known. Mobility and Gait Pt states he uses a FWW for limited household mobility. He says he is mostly homebound. Activities of Daily Living and IADL's Spouse provides assist with dressing and with sponge baths . Pt has a tub/shower and does not feel safe getting in and out even witho assist. Pt states he needs occasional assist with toileting. Pt's spouse provides medication management. Neither pt nor his spouse drives; they depend on a taxi or other service for transportation. Prior Functional Level (Other details) Pt has a Life Alert worn around his neck. He states he uses a CPAP at night but does not typically use supplemental O2 at home. Social History Household Members spouse Living Arrangements House Number of Floors (Floors) Two Floors Number of Stairs To Enter/Railing? 3 REHAN with narrow bilateral rails. Pt states he uses both rails when entering. 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 He has a son, Izaiah, also in but pt states he does not get any assist from him. M2 OT-IP Current Condition Start: 09/18/21 13:40 Freq: Status: Active Protocol: Document 09/18/21 13:41 CGR (Rec: 09/18/21 14:00 [facility] [id number]) Occupational Therapy Current Condition Current Condition Evaluation Date 09/18/21 Treatment Diagnosis Fall with R hip pain, weakness and aspiration PNA Diagnosis Onset Date 09/17/21 M3 OT- IP Subjective and Pain Start: 09/18/21 13:40 Freq: Status: Active Protocol: Document 09/18/21 13:41 CGR (Rec: 09/18/21 14:00 [facility] [id number]) OT- Subjective Occupational Therapy Visit Type Type Initial Evaluation Visit Start Time 09:33 Visit Stop Time 09:56 Total Visit Minutes 23 Notes Partial co-treat with P.T. Occupational Therapy Visit Comments Patient Comments I can't brush my teeth without water OT Pain Assessment Pain When Pain Assessed During Mobility Pain Present Pain Present Pain Reported Location Back Intensity 7 Scale Used Numeric (0 - 10) Pain Behaviors Facial Grimacing,Guarding, Moaning,Restlessness,Wincing Management Techniques Distraction,Modification of Treatment,Re-positioning M4 OT- IP ADL's Start: 09/18/21 13:40 Freq: Status: Active Protocol: Document 09/18/21 13:41 CGR (Rec: 09/18/21 14:00 CGR [id number]) OT [id number] Comments OT Self-Feeding Comments Pt is NPO OT ADL-Grooming General Evaluation Grooming Ability Standby Assistance Areas Needing Assistance Face Washing Comments OT Grooming Comments seated in chair OT ADL-Oral Care Comments Oral Care Comments Pt declined to perform without first drinking water OT ADL-Dressing General Eval Lower Body Dressing Ability Maximum Assistance,Total Assistance Areas Needing Assistance Underpants/Brief,Socks Comments OT Dressing Comments Pt states that his assist with all lower body dressing at home OT ADL-Toileting General Evaluation Toileting Ability Moderate Assistance Areas Needing Assistance Manage Clothing Comments OT Toileting Comments Pt urinated seated on toilet and needed assist with donning breifs. No pericare needed on this date. OT ADL-Bathing Comments OT Bathing Comments Not performed M5 OT- IP IADL's Start: 09/18/21 13:40 Freq: Status: Active Protocol: Document 09/18/21 13:41 CGR (Rec: 09/18/21 14:00 CGR [id number]) OT-Instrumental Activities of Daily Living Deficits IADL Deficits Identified Deficits Home Safety Awareness Awareness of Need for Assistance at Home Decreased Awareness Ability to Problem Solve Emergency Unable to Problem Solve Situations Medication Management Medication Management Comments Pt is not safe to perform without supervision Money Management Money Management Comments Pt is not safe to perform without supervision Meal Preparation Meal Preparation Comments Pt is not safe to perform without supervision Supervising Nurse Supervising Nurse Comments Pt is not safe to perform without supervision Driving Driving Comments Pt does not drive. M6 OT- IP Functional Cognition Start: 09/18/21 13:40 Freq: Status: Active Protocol: Document 09/18/21 13:41 CGR (Rec: 09/18/21 14:00 CGR [id number]) Cognitive Factors Limiting Selfcare Function Cognitive Ability Level of Alertness Alert,Confusional State Patient Orientation Name Attention Span Ability Unable to Focus,Unable to Sustain Attention Ability to Follow Commands Able to Follow One Step Commands with Increased Time, Able to Follow One Step Commands with Repetition Cognitive Comments Cognitive Assessment Comments Pt would benefit from formal cog assessment. Pt was unable to state his location, year, month, or day. OT- Vision and Hearing OT- Hearing Assessment OT- Hearing Assessment WFL OT- Vision Assessment Visual Attentiveness WFL Occular Pursuits WFL Visual Convergence WFL M7 OT- IP Mobility and Balance Start: 09/18/21 13:40 Freq: Status: Active Protocol: Document 09/18/21 13:41 CGR (Rec: 09/18/21 14:00 CGR [id number]) OT- Bed Mobility Assessment Supine to Sit Supine to Sit Assist Contact Guard Assistance Scooting Scooting to Edge of Bed Contact Guard Assistance OT-Transfer Assessment Sit to and From Stand Sit to and from Stand Minimal Assistance,Moderate Assistance Transfers Transfer Ability Minimal Assistance Technique Transfer Destination Bed,Chair,Toilet Transfer Technique Stand Step Pivot Devices Transfer Assistive Devices Gait Belt,Front Wheeled Walker Comments Mobility Comments Pt needed min a for sit to stand from bed but mod a for sit to stand from toilet. Pt left sitting up in chair at end of session. OT- Gait Assessment Gait Gait Assistance Required: Minimum Assistance Assistive Devices Assistive Device Gait Belt,Front Wheeled Walker Comments Gait Ability Comments mobility up to bathroom and return to chair in room. OT- Balance Assessment Sitting Balance and Reactions Static Sitting Balance Ability Good Dynamic Sitting Balance Ability Good M8 OT- IP Objective Assessments Start: 09/18/21 13:40 Freq: Status: Active Protocol: Document 09/18/21 13:41 CGR (Rec: 09/18/21 14:00 CGR [id number]) OT Gross Range of Motion Upper Extremity Range of Motion Assessment Within Functional Limits OT Strength Upper Extremity Strength Assessment Within Functional Limits Comments Strength Comments 4/5 OT- Coordination Assessment Upper Extremity Finger to Nose Test Within Functional Limits Finger Tapping Test Within Functional Limits OT-Muscle Tone Assessment Muscle Tone WNL Yes OT Sensation Assessment Edema Edema Absent M9 OT- IP Assessment and Plan Start: 09/18/21 13:40 Freq: Status: Active Protocol: Document 09/18/21 13:41 CGR (Rec: 09/18/21 14:00 CGR [id number]) OT Summary Assessment and Plan Potential Rehabilitation Potential Good Analytic Complexity at Evaluation Moderate Summary OT Impairments Pain,Balance,Coordination, Functional Cognition, Functional Mobility,Grooming, Dressing,Toileting,Bathing, Toilet Transfers,Shower Transfers,Activity Tolerance Progress Towards Goals Slow Progress due to Pain,Slow Progress due to Medical Issues,Slow Progress due to Cognition Assessment Summary Pt presents as moderate complexity evaluation s/p admit for fall at home. Pt was recently hospitalized at [facility] and returned home. Per case management, pt' s spouse feels overwhelmed with caring for pt. Pt was upset in todays session regarding his inability to have water after his swallow study. Pt is currently unsafe for mobility without assist and needs significant assist with his daily activities at his baseline. Pt may benefit from SNF upon discharge. Goals Grooming Goal Independent Dressing Goal Minimal Assistance Toileting Goal Independent Bathing Goal Minimal Assistance Toilet Transfer Goal Standby Assistance Shower Transfer Goal Standby Assistance Days to Meet Goals 15 Frequency of Treatment Frequency Of Treatment Once a Day Treatment Plan OT Treatment Plan ADL Training,Functional Cognition Training,Functional Mobility,Patient/Family Education,Discharge Planning Other Treatment Recommendations and Next formal cog assessment, shower Treatment Focus Discharge Recommendations OT Discharge Recommendations SNF Rehab Transportation Needs at Discharge Private Vehicle
[2021-09-18] MEDS: FUROSEMIDE 40 MG/4 ML VIAL IV (10:08)
[2021-09-18] MEDS: methylPREDNISolone 125 MG/2 ML VIAL 60 MG IV (10:08)
--- NOTE | 2021-09-18 14:03 | ST.IPIE ---
Visit Care Team Role Provider Type Barber Nance MD Other Providers Physician Specialty: Medical Address: Phone: Fax: Email: Dia Palencia MD Other Providers Physician Specialty: Medical Address: Phone: Fax: Email: Mandy Elizalde MD Other Providers Physician Specialty: Orthopedics Orthopedic Surgery Address: [address] [place] [address], [id number] Email: [email or web address] Magui Heath MD Other Providers Physician Specialty: Medical Address: Phone: Fax: Email: Sherif Jesus MD Other Providers Physician Specialty: Medical Address: Phone: Fax: Email: Crystal Masterson MD Other Providers Physician Specialty: Internal Medicine Address: Phone: Fax: Email: Delmar Ahn MD Other Providers Physician Specialty: Medical Address: Phone: Fax: Email: Horacio Ortiz MD Other Providers Physician Specialty: Internal Medicine Address: Phone: Fax: Email: Saleem España MD Other Providers Physician Specialty: Medical Address: Phone: Fax: Email: Edgard Heath MD Other Providers Physician Specialty: Medical Address: Phone: Fax: Email: Erika Coronel MD Other Providers Physician Specialty: Medical Address: Phone: Fax: Email: Aimee Waite Other Providers Physician Specialty: Medical Address: Phone: Fax: Email: Afshin Carroll MD Other Providers Physician Specialty: Medical Address: Phone: Fax: Email: Delmar Meza DO Emergency Provider Physician Referring Provider Specialty: Emergency Medicine Address: [address] [place] [address], [id number] Email: [email or web address] Brien Christian MD Admit Provider Physician Attending Provider Specialty: Hospitalist Address: [address] [place] [address], [phone] Fax: Email: [email or web address] Diagnoses Pain in right hip (09/17/21) Hypoxemia (09/17/21) Disorientation, unspecified (09/17/21) Unspecified fall, initial encounter (09/17/21) Past Medical History (Last Reviewed 09/17/21 @ 17:40 by Brien Christian MD) Congestive heart failure (Medical) Diabetes (Medical) Paroxysmal atrial fibrillation (Medical) ST IP Initial Evaluation Report HYDRO PNEUMATIC TESTER Clinical Swallow Evaluation Start: 09/18/21 09:37 Freq: Status: Active Protocol: Document 09/18/21 09:37 CLAUDETTE (Rec: 09/18/21 09:41 CLAUDETTE [id number]) Clinical Swallow Evaluation Session Time Visit Start Time 08:50 Visit Stop Time 09:10 Total Visit Minutes [address] Brien Christian Setting Assessment Location Acute Care Visit Type Note Type Initial evaluation Next Note Type Next Note Type Treatment Note Patient Information Identification Type Name,ID Card History Mr. Wright is a 81M with PMH CHF, COPD on home O2. The patient was admitted to [facility] last week with weakness and aspiration pneumonia. He was discharged home where he had a fall and brought by EMS to ED. The pt was observed by NSG to have strong cough with sip of thin water this morning and was made NPO pending swallow evaluation. The pt underwent MBSS at [facility] on 09/15/21 (per phone conversations with [facility] staff and MBSS report that was faxed at this HYDRO PNEUMATIC TESTER's request). Findings: Oropharyngeal dysphagia with deficits in airway safety and pharyngeal efficiency. Swallow is complicated by suspected osteophyte that is protruding into the pharynx and limiting epiglottic inversion. Airway invasion was diminished with chin down/tuck posture demonstrated by the decreased depth of penetration. Recommendations: Dysphagia mechanical solids, thin liquids, straws ok. Set-up assistance and distant supervision. Environmental cues for swallowing position ( chin tuck). Per phone discussion with an HYDRO PNEUMATIC TESTER who treated the pt at [facility], the pt had at one time been recommended HTL but refused, which resulted in dehydration. Subjective Observations The pt was awake and alert, very [place] but able to repeat this HYDRO PNEUMATIC TESTER's name after reading from name tag. Pt was positioned upright in bed. 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 He was able to follow oral directions with demonstration during oral peripheral exam and to cough when instructed. Reported by Patient Other Symptoms Coughing,Difficulty swallowing liquids Current Diet Nothing by mouth Objective Assessment Mental Status Alert,Responsive,Cooperative Oral Integrity WFL Dentition Within normal limits Lip Function Within normal limits Observation of Lips at Rest Symmetrical Pucker Within normal limits Lip Retraction Within normal limits Alternating Pucker/Lip Retraction Within normal limits Tongue Function Within normal limits Observations of Tongue at Rest Within normal limits Tongue Protrusion Within normal limits Tongue Lateralization Within normal limits Jaw Function Within normal limits Observations of Jaw at Rest Within normal limits Jaw Opening Within normal limits Jaw Closing Within normal limits Jaw Lateralization Within normal limits Hard/Soft Palate Function Within normal limits Observations of Hard/Soft Palate Within normal limits Nasality Within normal limits Phonation Within normal limits Respiratory Sufficiency Within normal limits Food and Liquid Trials Position During Assessment Upright (90 degrees) Liquids Trialed Ice chips,Paragon Solids Trialed Puree Administration Type Tea spoon Oral Impairment Within functional limits Oral Phase Comments Oral prep and swallow phase appear to be WNL. Pt masticated ice chips; a/p propulsion and swallow trigger appear timely. Pharyngeal Impairment Severely impaired Pharyngeal Phase Comments Immediate and extensive cough was noted with all trials. Chin tuck was not beneficial. Pt reports alternated between , It went down wrong and It went to my stomach. There's no problem demonstrating poor or inconsistent awareness levels. Strategies Attempted Chin tuck Response/Comments No benefit from chin tuck was observed during bedside swallow eval, but this was reported to reduce depth of laryngeal penetration during MBSS performed at [facility]. Findings Swallowing Function Oropharyngeal phase dysphagia Severity of Swallow Impairment Moderately-severely impaired Contributing Factors to Swallow Reduced alertness or attention Impairment ,Difficulty following directions,Reduced oral strength/coordination/ sensation,Impaired airway protection Prognosis Fair Based on Cognitive status,Age,History of aspiration/aspiration pneumonia,Comorbidities Impact on Safety and Functioning Risk for aspiration Recommendations Instrumental Assessment No Swallowing Treatment Yes Frequency 2-3x over hospital stay for ongoing assessment of diet tolerance Recommended Solids Dysphagia Mechanical Recommended Liquids Honey Other Recommendations Advance diet per MD orders. Recommend dysphagia mechanical solids and honey-thick liquids for pt safety. However , based on reports from [facility], thin liquids may be an appropriate liquid consistency for pt comfort and/or to maintain hydration. Safety Precautions/Swallowing Supervision needed for all Recommendations meals,Feed only when alert, Reduce distractions,Remain upright (90 degrees) during all oral intake,Needs verbal cues to use recommended strategies,Upright position at least 30 minutes after meals, Small bites and sips when eating,Slow rate; swallow between bites,Set-up assistance Medication Recommendations Whole in Carrier Discharge Recommendations [facility] facility Goals Short-term Goals 1. The pt will follow safe swallow strategies with verbal /visual prompts as needed. Long-term Goals 1. The pt will tolerate least restrictive diet to meet his nutrition and hydration needs.
--- NOTE | 2021-09-18 15:12 | CM.DPC ---
DCP Cont: Spoke to Sienna in admissions at [facility]. Confirmed, they can accept patient. She stated that they are expecting a discharge tomorrow, but still uncertain if bed will be available Wed, which is 3rd midnight. Asked her if she can use the inpatient status from when patient was at [facility], for possible tomorrow admission. She stated she can ask someone in her office, no one there to ask today. Let her know that this DC will follow up tomorrow. P: DCP to continue to follow. [facility] has confirmed acceptance pending bed availability. Will follow up tomorrow. Crystal Nelson RN/Poultryman
--- NOTE | 2021-09-18 15:22 | PM.PN.1 ---
Subjective Subjective Date Patient Seen: 09/18/21 Time Patient Seen: 08:00 Interval history: He is less confused today. His breathing is improved. Exam Vital Signs (past 8 hours): - 09/18/21 07:30 09/18/21 08:00 09/18/21 08:30 Temperature 97.5 F L Pulse Rate 81 83 79 Respiratory Rate 36 H 31 H 38 H Blood Pressure 165/104 H Pulse Oximetry 95 97 97 09/18/21 09:00 09/18/21 09:30 09/18/21 09:32 Temperature Pulse Rate 84 82 81 Respiratory Rate 34 H 36 H 31 H Blood Pressure 162/115 H 151/72 H Pulse Oximetry 95 96 95 09/18/21 10:00 09/18/21 10:30 09/18/21 11:00 Temperature Pulse Rate 74 80 77 Respiratory Rate 28 H 40 H 36 H Blood Pressure Pulse Oximetry 95 97 98 09/18/21 11:30 09/18/21 12:00 09/18/21 12:30 Temperature 99.1 F Pulse Rate 79 76 80 Respiratory Rate 33 H 33 H 46 H Blood Pressure 161/79 H Pulse Oximetry 96 96 97 09/18/21 13:00 09/18/21 13:30 09/18/21 14:00 Temperature Pulse Rate 82 87 83 Respiratory Rate 37 H 34 H 37 H Blood Pressure Pulse Oximetry 95 97 96 09/18/21 14:30 Temperature Pulse Rate 80 Respiratory Rate 72 H Blood Pressure Pulse Oximetry 95 Fraction of Inspired Oxygen 35 Oxygen Delivery Method Room Air Oxygen Flow Rate 6 Narrative Exam Narrative: GEN: no acute distress HEENT: moist mucous membranes, PERRL NECK: trachea midline, no JVD CV: regular rate and rhythm, no murmurs PULM: decreased breath sounds ABD: soft, nontender, nondistended, no organomegaly EXT: warm and well perfused with no edema NEURO: awake, alert, but confused Objective Labs Result Diagrams: 09/18/21 05:18 09/18/21 05:18 Labs: Laboratory Results - last 24 hr 09/17/21 09/18/21 09/18/21 19:30 05:18 05:18 WBC 15.7 H RBC 5.96 H Hgb 16.4 Hct 49.2 MCV 82.7 MCH 27.6 MCHC 33.4 RDW 16.4 H Plt Count 224 Neut % (Auto) 92.1 H Lymph % (Auto) 4.2 L [place] % (Auto) 3.5 Eos % (Auto) 0.0 L Baso % (Auto) 0.2 Neut # (Auto) 83156 H Lymph # (Auto) 700 L [place] # (Auto) 500 Eos # (Auto) 0 Baso # (Auto) 0 Sodium 146 H Potassium 3.6 Chloride 108 H Carbon Dioxide 28 BUN 24 H Creatinine 0.93 Estimated GFR > 60 BUN/Creatinine Ratio 25.8 H Glucose 198 H Calcium 9.0 Nasal Screen MRSA (PCR) Negative for mrsa [facility] Medical History Congestive heart failure Diabetes Paroxysmal atrial fibrillation Social History (Updated 09/17/21 @ 08:39 by Delmar Meza DO) marital status: household members: spouse lives independently: Yes Assessment & Plan Assessment & Plan narrative: 1. Acute hypercarbic respiratory failure and acute encephalopathy from aspiration pneumonia -likely respiratory failure a combination of CO2 retention from COPD exacerbation from recent pneumonia and possibly causing mild CHF exacerbation -treat with steroids, nebulizers and azithromycin for COPD exacerbation -given recent history of aspiration and recnet hospitalization, ordered for zosyn, vanco -stop vanco as MRSA swab negative -continue gentle diuresis with IV lasix -consider ECHO depending on how his symptoms respond -follow up cultures -appears to have significant aspiration, awaiting OSH records, will see if patient swallow improves with medical treatment of illness, but high likelihood patient is appropriate for hospice 2. Atrial fibrillation, chronic -contine xarelto -continue coreg, digoxin 3. Hypertension -hold losartan for now, continue coreg 4. Type 2 Diabetes -hold metfomrin -glucose check achs -ordered for insulin sliding scale 5. Depresison -continue sertraline 6. Hip pain -per radiology read no evidence of fracture or displacement of hardware -ortho consulted appreciate recs -careful with pain meds given respiratory decompensation -PT eval CODE: DNR/DNI, has POLST confirming Proxy: Linda Wright, Time Spent With Patient Critical Care time: I spent a total of [] minutes of critical care time on this patient's care today; this time is exclusive of procedural time.
[2021-09-18] MEDS: AZITHROMYCIN 500 MG in DEXTROSE 5% IN WATER 250 ML IV (17:04)
--- NOTE | 2021-09-18 19:53 | PC.NURSE ---
Called Dr. Gordon and left message on voice mail requesting him to call ICU RE patient in [facility] [phone]. Requesting doctor to review speech swallow evaluation note and to give new diet orders. Patient is hypertensive and his beta katherine was held X2 on day shift. Waiting for Dr. Gordon to return my call.
[2021-09-19] VITALS (15 sets, daily range): BP systolic 138–189; BP diastolic 69–97; PULSE 59–95; RESP 10–37; TEMP 36–36.8; O2SAT 91–97
--- NOTE | 2021-09-19 01:08 | PC.NURSE ---
Called EVERTON Chavez informed patient hypertensive and that he has been NPO all day. Need new diet order, refer to Speech recommendations. New diet order given for Dysphasia Mechanical, honey thick given. Will give po beta katherine tonight for HTN.
[2021-09-19] MEDS: carvediloL 12.5 MG TABLET 25 MG PO ×2 (01:15→17:26)
[2021-09-19] MEDS: PIPERACILLIN/TAZO 3.375 GM in SODIUM CHLORIDE 0.9% 100 ML 25 ML IV ×3 (02:38→17:23)
[2021-09-19] MEDS: MORPHINE 4 MG/ML INJ IV ×2 (04:53→09:59)
[2021-09-19 06:31] LABS: Hematocrit 44.7 % (41-53); Mean Corpuscular HGB Conc 33.7 % (30-36); Mean Corpuscular Hemoglobin 27.9 PG (26-34); Platelet Count 227 X10^3/uL (150-400); Red Blood Cell Count 5.38 X10^6/uL (4.5-5.9); Red Cell Distribution Width 16.3 % (11.6-14.8); White Blood Cell Count 15.5 X10^3/uL (4.5-11.0)
--- NOTE | 2021-09-19 06:36 | PC.NURSE ---
Called EVERTON Jose, informed her patient is still hypertensive after receiving his carvedilol 25ng at 0100. Patient is controlled afib 66 with frequent PVCs. Discussed he is scheduled to get Lasix at 0900. New order, Mag was added to am labs. Discussed prior to arrival medications, Lianet will review patients chart.
--- NOTE | 2021-09-19 06:42 | PC.NURSE ---
End of shift note. Care of patient from [id number]. Patient extremely [place], does not wear hearing aids. Oriented to self. When asked where is he, he states hospital, does not remember coming in, does not know name of hospital, and does not know why he is here. Does ask questions as to why he is here. Easy to redirect. Hypertensive, new diet orders were obtained by computer lab para professional provider, patient was given is beta katherine at 0100, continues to be hypertensive this am. Provider notified and aware patient has been controlled atrial fib 66-80 with frequent PVCs. Mag was added to am labs. Patient tolerating honey thick liquids and able to take po medication with pudding with no coughing. HOB 45 degrees with supervision. Incontinent of urine X3, urinal offered with assist, unable to urinate on demand. Blanching redness with dry skin to buttocks, foam protective dressing changed. Needs assist to boost up in bed, able to turn self side to side. PIV left AC dislodged. New PIV 20g to Right hand, with protective guaze and kurlex to secure.
[2021-09-19 06:44] LABS: Magnesium 2.2 mg/dL (1.6-2.3)
[2021-09-19 06:45] LABS: BUN Creatinine Ratio 37.8 (6-22); Blood Urea Nitrogen 31 mg/dL (9-20); Calcium 8.9 mg/dL (8.4-10.2); Carbon Dioxide 28 mmol/L (22-32); Chloride 111 mmol/L (98-107); Estimated Glomerular Filt Rate > 60 mL/min (>60); Glucose 173 mg/dL (80-110); HEMOLYSIS < 15 (0-50); Potassium 3.3 mmol/L (3.4-5.1); Sodium 147 mmol/L (137-145)
[2021-09-19] MEDS: DIGOXIN 0.125 MG TABLET PO (09:08)
[2021-09-19] MEDS: RIVAROXABAN 10 MG TABLET 20 MG PO (09:08)
[2021-09-19] MEDS: SERTRALINE 50 MG TABLET 100 MG PO (09:10)
[2021-09-19] MEDS: LOSARTAN 50 MG TABLET PO (09:11)
[2021-09-19] MEDS: ATORVASTATIN 20 MG TABLET PO (09:11)
[2021-09-19] MEDS: methylPREDNISolone 125 MG/2 ML VIAL 60 MG IV (09:12)
[2021-09-19] MEDS: FUROSEMIDE 40 MG/4 ML VIAL IV (09:16)
[2021-09-19] MEDS: MEMANTINE HCL 5 MG TABLET 10 MG PO ×2 (09:17→21:23)
[2021-09-19] MEDS: INSULIN LISPRO 100 UNIT/ML 3ML VIAL SUBCUT ×4 (09:18→21:21)
--- NOTE | 2021-09-19 10:27 | CM.DPC ---
Addendum entered by Crystal Nelson R.N. 09/19/21 13:34: Went into patient's room, he is hard of hearing, had to get closer so patient could understand. Updated him about intermediate at [facility], and he is consenting to go. Asked him if this DC Sommelier can update his , and he gave ok. Called and updated patient's spouse, Linda. She is happy that he can go there through his Medicare, but concerned about him going back home after that. Encouraged her to work with son, Edmund, regarding [place]. She asked if her son, dEmund, can be updated. Let her know that this DC Sommelier will. Confirmed with patient it's ok to call son, Edmund. Called Edmund and updated him. He indicated that he has been working on [place] planning, and wanted his mom to do financial separation agreement so his dad can qualify for Medicaid. Encouraged son to continue to work on rodent exterminator planning while patient is in skilled. Will update Jacinto at [facility]. Addendum entered by Crystal Nelson R.N. 09/19/21 12:00: Spoke to Fartun at [facility], confirmed, she can accept tomorrow. Will update spouse, before DC, as it was her preference for him to go there. Original Note: DCP Cont: Discussed patient during team rounds. He is still having difficulty with swallowing, non compliant with some of the dietary changes. Let Dr. Dunlap that [facility] stated that they could accept, unsure at this time if tomorrow. Called [facility] and left a message. Dr. Dunlap did mention palliative possibility. P: DCP to continue to work on placement. Have a call out to [facility] to confirm that they can accept. If they can't, will attempt other facilities. Crystal Nelson, LEE ANN/Vice President For Philanthropy
--- NOTE | 2021-09-19 10:34 | DIET.CONS2 ---
Dietary Inpatient Consultation Note Admission Date: 09/17/2021 12:[address] RD in conversation regarding pts current diet order. Pt safest c honey thick liquids per notes from [facility], pt here c aspiration pneumonia non-compliant c honey thick liquids. During conversation pt calling out for water, I need more water, pt instructed by nursing to drink water using teaspoon, importance of honey thick texture for safe swallow, pt took cup and gulped down. RD and kitchen to send up variety of honey thick liquids for pt to trial with goal of finding several he is willing to be compliant with. Pt DNR/DNI, considerations being made for hospice care, in this case, pt would be able to comfort feed/drink at all food/fluid textures. Diet: 09/19/21 Breakfast Dysphagia Diet Diet Modifications: Observation while eating, meds whole with carrier Safety Tray needed?: No Liquid consistency: Honey Consistency Food texture: Dysphagia Mechanical Soft Nutrition Percent Meal Consumed 100% 09/19/21 01:30 Electronically Signed by: Sana Hare 09/19/21 10:34 Clinical Dietitian [address] [address]
--- NOTE | 2021-09-19 10:36 | PT.IPTN ---
Current Diagnoses Acute respiratory failure with hypercapnia (09/17/21) Pain in right hip (09/17/21) Hypoxemia (09/17/21) Unspecified fall, initial encounter (09/17/21) Physical Therapy Treatment Note M2 PT-IP Current Condition Start: 09/18/21 08:24 Freq: NEEDED Status: Active Protocol: Document 09/18/21 09:45 AW (Rec: 09/18/21 13:12 AW [id number]) Physical Therapy Current Condition Current Condition Evaluation Date 09/18/21 Treatment Diagnosis respiratory failure, encephalopathy; impaired mobility and gait Onset Date 09/16/21 M3 PT-IP Subjective Start: 09/18/21 08:24 Freq: NEEDED Status: Active Protocol: Document 09/19/21 10:17 KS (Rec: 09/19/21 11:46 KS [id number]) Subjective Physical Therapy Visit Type Type Treatment Note Visit Start Time 10:17 Visit Stop Time 10:36 Total Visit Minutes 19 Notes FINANCIAL REPORTING MANAGER present for assistance. Number of INTERACTIVE MEDIA PROJECT MANAGER Visits 1 Physical Therapy Visit Comments Patient Comments Pt is willing to participate with therapy M4 PT-IP Mobility and Gait Start: 09/18/21 08:24 Freq: NEEDED Status: Active Protocol: Document 09/19/21 10:17 KS (Rec: 09/19/21 11:46 KS [id number]) PT-Bed Mobility Assessment Supine to Sit Supine to Sit Minimal Assistance,1 Person Assistance,Head of Bed Elevated,Bedrails Scooting Scooting to Edge of Bed Contact Guard Assistance PT-Transfer Assessment Sit to and From Stand Sit to and from Stand Minimal Assistance,Moderate Assistance,1 Person Assistance ,Use of Upper Extremities Equipment Transfer Assistive Device Gait Belt,Front Wheeled Walker Orthotic/Prosthetic Devices or Brace: No Transfers Transfer Destination Chair,Toilet Transfer Technique pt ambulated with FWW Transfer Ability Level of Assist Minimal Assistance,Moderate Assistance,1 Person Assistance ,Use of Upper Extremities Comments Mobility Comments Pt in bed upon arrival and nursing staff present. Pt requesting to use BSC. Min A for sup<>sit w/ HOB elevated and CGA for scooting EOB. Pt [place] but able to follow commands. Min/Mod A for sit<> stand w/ FWW and Min A for stand step pivot from bed to BSC. After voiding, pt required Min/Mod A and cues for hand placement for sit<> stand w/ FWW and ambulated ~6 ft to chair. Pt then performed ~2 x [address] prior to sitting. He then performed 1x10 bilateral ankle pumps, LAQs, and seated marches and then requested to be finished. Pt left in chair w/ all needs in reach. Gait Assessment Gait Gait Assistance Required: Minimum Assistance,1 Person Assist Distance (Feet) 8 Assistive Devices Assistive Device Gait Belt,Front Wheeled Walker Orthotic/Prosthetic Devices or Brace: No Gait Deviations General Gait Pattern Antalgic,Decreased Stride Length,Decreased Feet Clearance,Wide Based Gait Factors Limiting Gait Function Factors Limiting Gait Function Decreased Activity Tolerance, Decreased Strength,Difficulty Following Directions,Pain,Poor Balance,Poor Safety Awareness Comments Gait Comments From bed to BSC and BSC to chair only. Pt w/ quick approach to fatigue. Stair Climbing Assessment Comments Stair Climbing Comments Not assessed. PT-Balance Assessment Sitting Balance and Reactions Static Sitting Balance Ability Good Dynamic Sitting Balance Ability Fair Standing Balance and Reactions Static Standing Balance Ability Fair Dynamic Standing Balance Ability Fair Device Used FWW M5 PT-IP Objective Assessments Start: 09/18/21 08:24 Freq: NEEDED Status: Active Protocol: Document 09/18/21 09:45 AW (Rec: 09/18/21 13:28 AW [id number]) Orientation Orientation/Cognition Level of Alertness Confusional State Orientation Name,Year,Situation Language Function Ability Hard of Hearing Safety Awareness Decreased Safety Awareness Memory Description Short Term Impaired Comments Pt was repetitive and tangential in conversation. Gross Range of Motion Lower Extremity ROM Assessment Within Functional Limits Strength Lower Extremity Strength Assessment Bilaterally Impaired Hip 4-/5 Knee 4/5 Sensation Assessment Sensation Gross Sensation WNL Muscle Tone Muscle Tone WNL Yes M6 PT-IP Treatment Start: 09/18/21 08:24 Freq: NEEDED Status: Active Protocol: Document 09/19/21 10:17 KS (Rec: 09/19/21 11:46 KS [id number]) Physical Therapy Treatment Exercises Exercises Ankle Pumps Education Education Provided Safety Other Treatments Other Treatment Performed LAQs, seated marching, marching in place. M7 PT-IP Assessment and Plan Start: 09/18/21 08:24 Freq: NEEDED Status: Active Protocol: Document 09/19/21 10:17 KS (Rec: 09/19/21 11:46 KS [id number]) PT Summary Assessment and Plan Potential Rehabilitation Potential Good Status of Condition at Evaluation Evolving Summary Impairments Pain,Strength,Balance, Cognition,Bed Mobility, Transfers,Gait,Activity Tolerance Assessment Summary Pt limited by weakness and low toelrance for activity. Min A for bed mobility and Min to Mod A for transfers. Able to ambulate short distances for transfers and complete minimal LE exercises to promote blood flow and strengthening, however fatigues quickly. Pt high fall risk due to poor safety awareness, poor balance , and low activity tolerance. He will require SNF to improve strength and functional mobility. Goals Bed Mobility Goal Independent Transfer Goal Standby Assistance,Front Wheeled Walker Gait Goal Standby Assistance,Front Wheel Walker Gait Distance 100 Other Goals - up/down 3 steps with B rails SBA Frequency of Treatment Frequency Of Treatment Once a Day Treatment Plan Physical Therapy Treatment Plan Bed Mobility Training,Transfer Training,Gait Training, Therapeutic Exercise,Balance Retraining,Discharge Planning, Hot or Cold Pack,Neuromuscular Re-ed Precautions Other Precautions falls; hypercarbic (SpO2 target ~92% - check with RN) Recommendations To Nursing Amount of Assist Needed 1 Person Assist Discharge Recommendations PT Discharge Recommendations SNF Rehab Transportation Needs at Discharge Wheelchair/Cabulance
--- NOTE | 2021-09-19 11:38 | OT.IP.TRT ---
Current Diagnoses Acute respiratory failure with hypercapnia (09/17/21) Pain in right hip (09/17/21) Hypoxemia (09/17/21) Unspecified fall, initial encounter (09/17/21) Occupational Therapy Treatment Note M2 OT-IP Current Condition Start: 09/18/21 13:40 Freq: Status: Active Protocol: Document 09/18/21 13:41 CGR (Rec: 09/18/21 14:00 CGR [id number]) Occupational Therapy Current Condition Current Condition Evaluation Date 09/18/21 Treatment Diagnosis Fall with R hip pain, weakness and aspiration PNA Diagnosis Onset Date 09/17/21 M3 OT- IP Subjective and Pain Start: 09/18/21 13:40 Freq: Status: Active Protocol: Document 09/19/21 11:21 [facility] (Rec: 09/19/21 11:57 [facility] [id number]) OT- Subjective Occupational Therapy Visit Type Type Treatment Note Visit Start Time 11:21 Visit Stop Time 11:38 Total Visit Minutes 17 Occupational Therapy Visit Comments Patient Comments Pt agreed to do SLUMs for OT treatment. OT Pain Assessment Pain When Pain Assessed At Rest Pain Present Pain Present Denied Pain M5 OT- IP IADL's Start: 09/18/21 13:40 Freq: Status: Active Protocol: Document 09/18/21 13:41 [facility] (Rec: 09/18/21 14:00 CGR [id number]) OT-Instrumental Activities of Daily Living Deficits IADL Deficits Identified Deficits Home Safety Awareness Awareness of Need for Assistance at Home Decreased Awareness Ability to Problem Solve Emergency Unable to Problem Solve Situations Medication Management Medication Management Comments Pt is not safe to perform without supervision Money Management Money Management Comments Pt is not safe to perform without supervision Meal Preparation Meal Preparation Comments Pt is not safe to perform without supervision Pneumatic Tester Pneumatic Tester Comments Pt is not safe to perform without supervision Driving Driving Comments Pt does not drive. M6 OT- IP Functional Cognition Start: 09/18/21 13:40 Freq: Status: Active Protocol: Document 09/19/21 11:21 [facility] (Rec: 09/19/21 11:57 [facility] [id number]) Cognitive Factors Limiting Selfcare Function Cognitive Ability Level of Alertness Alert Patient Orientation Name,Month,Date,Year,Place, Situation Attention Span Ability Capable of Focused Attention, Capable of Sustained Attention Ability to Follow Commands Able to Follow One Step Commands Memory Description Short Term Impaired Problem Solving Ability Needs Assist to Identify Solutions Cognitive Tests SLUMS Initiated SLUMS and pt scoring 5/24 and at this time able to states the day, year, state we live in, able to add 20+3, and able to name 6 animals in one minute, pt not able to complete the rest of the items as feeling not able to think well. So far pt score is 5/24 . To retest when pt clears more. Cognitive Comments Cognitive Assessment Comments Pt able to identify to call for the fire department in case of a fire. Able to say to call the pharmacy in out of medications , and eventually able to identify if the toilet flooded to close the valve. Pt states would get his credit card number out if asked on the phone and also states would open the door to a stranger. M7 OT- IP Mobility and Balance Start: 09/18/21 13:40 Freq: Status: Active Protocol: Document 09/18/21 13:41 [facility] (Rec: 09/18/21 14:00 CGR [id number]) OT- Bed Mobility Assessment Supine to Sit Supine to Sit Assist Contact Guard Assistance Scooting Scooting to Edge of Bed Contact Guard Assistance OT-Transfer Assessment Sit to and From Stand Sit to and from Stand Minimal Assistance,Moderate Assistance Transfers Transfer Ability Minimal Assistance Technique Transfer Destination Bed,Chair,Toilet Transfer Technique Stand Step Pivot Devices Transfer Assistive Devices Gait Belt,Front Wheeled Walker Comments Mobility Comments Pt needed min a for sit to stand from bed but mod a for sit to stand from toilet. Pt left sitting up in chair at end of session. OT- Gait Assessment Gait Gait Assistance Required: Minimum Assistance Assistive Devices Assistive Device Gait Belt,Front Wheeled Walker Comments Gait Ability Comments mobility up to bathroom and return to chair in room. OT- Balance Assessment Sitting Balance and Reactions Static Sitting Balance Ability Good Dynamic Sitting Balance Ability Good M8 OT- IP Objective Assessments Start: 09/18/21 13:40 Freq: Status: Active Protocol: Document 09/18/21 13:41 [facility] (Rec: 09/18/21 14:00 [facility] [id number]) OT Gross Range of Motion Upper Extremity Range of Motion Assessment Within Functional Limits OT Strength Upper Extremity Strength Assessment Within Functional Limits Comments Strength Comments 4/5 OT- Coordination Assessment Upper Extremity Finger to Nose Test Within Functional Limits Finger Tapping Test Within Functional Limits OT-Muscle Tone Assessment Muscle Tone WNL Yes OT Sensation Assessment Edema Edema Absent M9 OT- IP Assessment and Plan Start: 09/18/21 13:40 Freq: Status: Active Protocol: Document 09/19/21 11:21 [facility] (Rec: 09/19/21 11:57 [facility] [id number]) OT Summary Assessment and Plan Potential Rehabilitation Potential Good Analytic Complexity at Evaluation Moderate Summary OT Impairments Pain,Balance,Coordination, Functional Cognition, Functional Mobility,Grooming, Dressing,Toileting,Bathing, Toilet Transfers,Shower Transfers,Activity Tolerance Progress Towards Goals Slow Progress due to Pain,Slow Progress due to Medical Issues,Slow Progress due to Cognition Assessment Summary Pt not able to complete SLUMS as not able to think well but scored 5/24 out of 30. To reassess when pt clears more. Pt would benefit from skilled rehab when medically stable. Goals Grooming Goal Independent Dressing Goal Minimal Assistance Toileting Goal Independent Bathing Goal Minimal Assistance Toilet Transfer Goal Standby Assistance Shower Transfer Goal Standby Assistance Days to Meet Goals 15 Frequency of Treatment Frequency Of Treatment Once a Day Treatment Plan OT Treatment Plan ADL Training,Functional Cognition Training,Functional Mobility,Patient/Family Education,Discharge Planning Other Treatment Recommendations and Next formal cog assessment, shower Treatment Focus Discharge Recommendations OT Discharge Recommendations SNF Rehab Transportation Needs at Discharge Private Vehicle
[2021-09-19] MEDS: POTASSIUM CHLORIDE 20 MEQ/15 ML UDC PO (12:06)
[2021-09-19 12:15] LABS: pH ABG 7.28 (7.35-7.45)
--- NOTE | 2021-09-19 13:06 | ST.IPDYTX ---
Visit Care Team Role Provider Type Barber Nance MD Other Providers Physician Specialty: Medical Address: Phone: Fax: Email: Dia Palencia MD Other Providers Physician Specialty: Medical Address: Phone: Fax: Email: Mandy Elizalde MD Other Providers Physician Specialty: Orthopedics Orthopedic Surgery Address: [address] [place] [address], [id number] Email: [email or web address] Magui Heath MD Other Providers Physician Specialty: Medical Address: Phone: Fax: Email: Sherif Jesus MD Other Providers Physician Specialty: Medical Address: Phone: Fax: Email: Crystal Masterson MD Other Providers Physician Specialty: Internal Medicine Address: Phone: Fax: Email: Delmar Ahn MD Other Providers Physician Specialty: Medical Address: Phone: Fax: Email: Horacio Ortiz MD Other Providers Physician Specialty: Internal Medicine Address: Phone: Fax: Email: Saleem España MD Other Providers Physician Specialty: Medical Address: Phone: Fax: Email: Edgard Heath MD Other Providers Physician Specialty: Medical Address: Phone: Fax: Email: Erika Coronel MD Other Providers Physician Specialty: Medical Address: Phone: Fax: Email: Aimee Waite Other Providers Physician Specialty: Medical Address: Phone: Fax: Email: Afshin Carroll MD Other Providers Physician Specialty: Medical Address: Phone: Fax: Email: Delmar Meza DO Emergency Provider Physician Referring Provider Specialty: Emergency Medicine Address: [address] [place] [address] Email: [email or web address] Brien Christian MD Admit Provider Physician Attending Provider Specialty: Hospitalist Address: [address] [place] [address] Fax: Email: [email or web address] METAL TRIM ERECTOR Dysphagia Treatment METAL TRIM ERECTOR Dysphagia Treatment Start: 09/18/21 09:37 Freq: Status: Active Protocol: Document 09/19/21 12:18 ZS (Rec: 09/19/21 12:34 ZS [id number]) Dysphagia Treatment Session Time Visit Start Time 09:35 Visit Stop Time 09:55 Total Visit Minutes 20 Setting Assessment Location Acute Care Visit Type Note Type Treatment Note Next Note Type Next Note Type Treatment Note Patient Information Identification Type Name,ID Wristband Subjective Observations Mr. Wright is an 81M with PMH CHF, COPD on home O2. The patient was admitted to [facility] last week with weakness and aspiration pneumonia. He was discharged home where he had a fall and brought by EMS to ED. The pt was observed by NSG to have strong cough with sip of thin water this morning and was made NPO pending swallow evaluation. The pt underwent MBSS at [facility] on 09/15/2021 (per phone conversations with [facility] staff and MBSS report that was faxed at this METAL TRIM ERECTOR's request). Findings: Oropharyngeal dysphagia with deficits in airway safety and pharyngeal efficiency. Swallow is complicated by suspected osteophyte that is protruding into the pharynx and limiting epiglottic inversion. Airway invasion was diminished with chin down/tuck posture demonstrated by the depth of penetration. Recommendations: Dysphagia mechanical solids, thin liquids, straw ok. Set-up assistance and distant supervision. Environmental cues for swallowing position ( chin tuck). Per phone discussion with an METAL TRIM ERECTOR who treated the pt at [facility], the pt had at one time been recommended HTL but refused, which resulted in dehydration. The pt was awake and alert, very [place] but able to repeat this METAL TRIM ERECTOR's name after reading from name tag. Pt was positioned upright in bed. He recalled having been at [facility] recently, working with library assistant there and commented that his liquids had been made a little thick. He was able to follow oral directions with demonstration during oral peripheral exam and to cough when instructed. Treatment Liquids Trialed Honey Solids Trialed Dysphagia Mechanical Administration Type Tea Spoon Oral Strategies Upright at 90 degrees, Controlled Bite/Sip Size Pharyngeal Strategies Sitting Upright (90 deg),Chin Tuck,Small Bites and Sips Treatment Activities Observed NSG provide spoonfuls of thin liquid to pt. Provided pt education regarding aspiration, safe swallow strategies, and thick liquids. Assessment Rehab Potential Fair Assessment of Improvement The pt swallowed thin water from a spoon quickly and requested more immediately by turning his head toward the nurse and opening his mouth. He exhibited a wet vocal quality following trials and coughed x2. NSG provided verbal and visual reminders to pt to tuck his chin and pt was not compliant. He stated it doesn't help and continued to tilt his head back for each swallow. Provided pt education regarding chin tuck and swallow safety, which pt appeared to hear but did not implement on subsequent trials . NSG reported pt drinks water very quickly from an open cup and has been requesting water to help with something in his nose. Recommended pt remain on current diet of honey thick liquids and dysphagia mechanical solids for swallow safety. Diet orders to be advanced based on MD recommendations. Diet Recommendations Recommendations Continue Current Diet Liquids Order Honey Diet Order Dysphagia Mechanical Additional Dietary Needs Reminders to Use Strategies Aspiration Precautions Recommended Precautions Upright at 90 Degrees,Small Bites/Sips,Chin Tuck Treatment Plan Appropriate for Continued Therapy Yes Therapy Recommendations Monitor for pt tolerance of current diet orders and possible advancement of diet following MD orders. Dysphagia Goals 1. The pt will follow safe swallow strategies with verbal /visual prompts as needed. 2. the pt will tolerate least restrictive diet to meet his nutrition and hydration needs.
--- NOTE | 2021-09-19 15:16 | DIET.PN1 ---
Dietary Progress Note Rd Note: Nursing reports c thickened juice consumption, pts BG [address]. RD noticed dysphagia diet does not include carb consistent level, added CCD3 to dysphagia diet, kitchen to stop sending juices, subbing SF watermelon water. Electronically Signed by: Sana Hare 09/19/21 15:16 Clinical Dietitian [address] [address]
[2021-09-19] MEDS: AZITHROMYCIN 500 MG in DEXTROSE 5% IN WATER 250 ML IV (16:06)
--- NOTE | 2021-09-19 17:57 | P.PN_ITS ---
Subjective Subjective Date Patient Seen: 09/19/21 Interval history: Patient is much less confused today and denies complaints currently. He has a chronic hacking cough which is unchanged. Exam Vital Signs (past 8 hours): - 09/19/21 12:00 09/19/21 14:42 09/19/21 17:26 Temperature 97.4 F L Pulse Rate 67 62 69 Respiratory Rate 37 H 24 Blood Pressure 177/84 H 138/72 184/77 H Pulse Oximetry 94 91 09/19/21 17:40 Temperature 97.0 F L Pulse Rate 72 Respiratory Rate 28 H Blood Pressure Pulse Oximetry 95 Fraction of Inspired Oxygen 28 Oxygen Delivery Method Nasal Cannula Oxygen Flow Rate 0 Narrative Exam Narrative: GEN: no acute distress HEENT: moist mucous membranes, PERRL NECK: trachea midline, no JVD CV: regular rate and rhythm, no murmurs PULM: decreased breath sounds ABD: soft, nontender, nondistended, no organomegaly EXT: warm and well perfused with no edema NEURO: awake, alert, but confused Objective Labs Result Diagrams: 09/19/21 06:00 09/19/21 06:00 Labs: Laboratory Results - last 24 hr 09/17/21 09/19/21 09/19/21 10:18 06:00 06:00 WBC 15.5 H RBC 5.38 Hgb 15.0 Hct 44.7 MCV 83.0 MCH 27.9 MCHC 33.7 RDW 16.3 H Plt Count 227 ABG pH 7.28 L* Sodium 147 H Potassium 3.3 L Chloride 111 H Carbon Dioxide 28 BUN 31 H Creatinine 0.82 Estimated GFR > 60 BUN/Creatinine Ratio 37.8 H Glucose 173 H Calcium 8.9 Magnesium 09/19/21 06:00 WBC RBC Hgb Hct MCV MCH MCHC RDW Plt Count ABG pH Sodium Potassium Chloride Carbon Dioxide BUN Creatinine Estimated GFR BUN/Creatinine Ratio Glucose Calcium Magnesium 2.2 PFSH Medical History Congestive heart failure Diabetes Paroxysmal atrial fibrillation Social History (Updated 09/17/21 @ 08:39 by Delmar Meza DO) marital status: household members: spouse lives independently: Yes Assessment & Plan Assessment & Plan narrative: 1. Acute hypercarbic respiratory failure and acute encephalopathy from aspiration pneumonia -likely respiratory failure a combination of CO2 retention from COPD exacerbation from recent pneumonia and possibly causing mild CHF exacerbation -treat with steroids, nebulizers and azithromycin for COPD exacerbation -given recent history of aspiration and recnet hospitalization, ordered for zosyn, vanco. stopped vanco as MRSA swab negative -continue gentle diuresis with IV lasix -echo not going to change management analyst. -follow up cultures 2. Atrial fibrillation, chronic -contine xarelto -continue coreg, digoxin 3. Hypertension -hold losartan for now, continue coreg 4. Type 2 Diabetes -hold metfomrin -glucose check achs -ordered for insulin sliding scale 5. Depresison -continue sertraline 6. Hip pain -per radiology read no evidence of fracture or displacement of hardware -ortho consulted appreciate recs -careful with pain meds given respiratory decompensation CODE: DNR/DNI, has POLST confirming Proxy: Linda Wright, Dispo: pending SNF, likely discharge tomorrow. Time Spent With Patient Critical Care time: I spent a total of [] minutes of critical care time on this patient's care today; this time is exclusive of procedural time.
[2021-09-19] MEDS: ACETAMINOPHEN 325 MG TABLET 650 MG PO (21:30)
[2021-09-20] VITALS (8 sets, daily range): BP systolic 155–194; BP diastolic 66–135; PULSE 59–84; RESP 13–27; TEMP 36.4–36.8; O2SAT 94–98
[2021-09-20] MEDS: PIPERACILLIN/TAZO 3.375 GM in SODIUM CHLORIDE 0.9% 100 ML 25 ML IV ×2 (02:50→09:32)
--- NOTE | 2021-09-20 04:20 | PC.NURSE ---
Notified EVERTON Chavez patient is hypertensive 196/126 this am. No new orders at this time.
[2021-09-20] MEDS: MORPHINE 4 MG/ML INJ IV (04:58)
--- NOTE | 2021-09-20 06:19 | PC.NURSE ---
End of shift note. Care of patient from [id number]. Patient alert, oriented to self and place. A-Fib 70s with occasional PVC. Hypertensive, notified Juanis Ahuja. Assessed for pain, gave Morphine for hip pain, patient slept and BP came down. RR even, non-labored on RA O2 Sats 95%. Plan is for patient to possibly discharge to [facility] today.
--- NOTE | 2021-09-20 07:58 | PM.DS.1 ---
History of Present Illness History of Present Illness Date Patient Seen: 09/20/21 Time Patient Seen: 07:58 Chief complaint: Rt. Hip deformity Narrative: Per Dr. Christian, Mr. Wright is a 81M with PMH CHF, COPD on home O2, HATTIE on CPAP, afib on xarelto, DM who presents to the hospital after a fall with right hip pain. He was quite confused and unable to provide a history. Some history was obtained by ED from EMS and , who is not present. Apparently patient was recently admitted to another hospital with weakness and aspiration pneumonia, discharged on augmentin. He had a fall but is unable to say how he fell. EMS arrived and administered morphine for his pain. In the ED workup was done, vitals notable for elevated blood pressure. Labs notable for WBC 11.8, hgb 16.6, plts 234. creatinine 0.71. BNP 4980. INR 1.7. Trop 0.037. COVID negative. ABG shows pH 7.28, pco2 57. Procal 0.07. Chest xray showed low lung volumes with cardiomegaly. Right hip xray showed no acute process. Knee xray showed no acute process but slight joint effusion. Pelvic CT showed no acute process. Head CT showed no acute process. He was ordered for IV zosyn, IV lasix, methylpred. He was placed on BIPAP. His notes he is a DNR. He was admitte for further treatment Family history: unable to obtain due to encephalopathy Discharge Providers Provider Date of admission: 09/17/21 12:24 Discharge Date: 09/20/21 Consults: 09/17/21 10:21 Consult to [facility] - Director Global Sales Stat Comment: [facility] Consult needed for:: Community Health Res Need Consult to Orthopedic Surgery Stat Comment: Consulting Provider: Mandy Elizalde Reason for consultation: hip pain Has provider been notified: Yes 09/17/21 12:49 Consult to Tele-manufacturing helper Routine Comment: Consulting Provider: [facility] [employer] Reason for consultation: Interpreter Deaf services Has provider been notified: Yes 09/18/21 05:34 Consult to Speech Therapy Evaluate & Treat Comment: cough when swallows recent aspiration pneumonia Physician Instructions: Evaluate and treat 09/18/21 08:22 Consult to Occupational Therapy Evaluate & Treat Comment: Physician Instructions: Evaluate and treat Consult to Physical Therapy Evaluate & Treat Comment: Physician Instructions: Evaluate and Treat Discharge provider: Noman Dunlap DO Summary Hospital Course Discharge Diagnosis: Please see hospital course by problem list noted below: Hospital Course: 1. Acute hypercarbic respiratory failure and acute encephalopathy from aspiration pneumonia -likely respiratory failure a combination of CO2 retention from COPD exacerbation from recent pneumonia and possibly mild CHF exacerbation -treated with steroids, nebulizers and azithromycin for COPD exacerbation -given recent history of aspiration and recent hospitalization, ordered for zosyn, vanco. stopped vanco as MRSA swab negative. Discharge on cefdinir to complete 5 day total course of treament. -patient was diuresed with IV lasix, echo was not performed as it would not currently change management coordinator for the patient. -cultures thus far have not resulted in a causal organism. 2. Atrial fibrillation, chronic -patient had no difficulties with rate control over the course of admission, his home medications were continued. 3. Hypertension -increased home losartan to 50 mg BID, continued home carvedilol 4. Type 2 Diabetes -metformin was held during admission and replaced with insulin sliding scale. -can resume metformin on discharge. 5. Depression -continue sertraline, no changes recommended. 6. Hip pain -per radiology read no evidence of fracture or displacement of hardware -ortho consulted and no acute interventions. -continue oral pain medications, patient's pain improved. 7. HATTIE - patient on chronic CPAP therapy at home. to bring in home machine to SNF. CODE: DNR/DNI, has POLST confirming Proxy: Linda Wright, Dispo: transfer to SNF. Time Spent with Patient Time spent: Greater than 30 minutes Exam Vital Signs (past 8 hours): - 09/20/21 00:00 09/20/21 04:09 09/20/21 06:01 Temperature 97.8 F 97.6 F Pulse Rate 65 78 75 Respiratory Rate 27 H 26 H 13 Blood Pressure 174/79 H 194/135 H 168/74 H Pulse Oximetry 96 96 94 Fraction of Inspired Oxygen 28 Oxygen Delivery Method Room Air Oxygen Flow Rate 0 Narrative Exam Narrative: GEN: no acute distress HEENT: moist mucous membranes, PERRL NECK: trachea midline, no JVD CV: regular rate and rhythm, no murmurs PULM: decreased breath sounds bilaterally, no obvious rhonchi rales or wheezing. ABD: soft, nontender, nondistended, no organomegaly EXT: warm and well perfused with no edema NEURO: awake, alert, but confused Objective Labs Result Diagrams: 09/19/21 06:00 09/19/21 06:00 Labs: Laboratory Results - last 24 hr 09/17/21 10:18 ABG pH 7.28 L* [facility] Medical History Congestive heart failure Diabetes Paroxysmal atrial fibrillation Social History (Updated 09/17/21 @ 08:39 by Delmar Meza DO) marital status: household members: spouse lives independently: Yes Discharge Plan Discharge Plan Patient Disposition: SNF Other facility: [facility] Provider Discharge Comment: patient was admitted for respiratory failure, likely due to combination of aspiration, COPD exacerbation, and CHF. Improved. Recommended for honey liquid and dysphagia mechanical diet, however patient refusing majority of honey thickened liquids. Will need to balance safety risk and nutrition moving forward. Discharge orders & Medications Prescriptions: New losartan 50 mg Tablet 50 mg PO BID 30 Days Qty: 60 0RF acetaminophen 325 mg Tablet 650 mg PO Q6HR PRN (Reason: pain, fever) 30 Days Qty: 60 0RF azithromycin 250 mg tablet 250 mg PO DAILY 2 Days Qty: 2 0RF prednisone 20 mg tablet 20 mg PO DAILY 2 Days Qty: 4 0RF cefdinir 300 mg capsule 300 mg PO BID 2 Days Qty: 4 0RF Continued Xarelto 20 mg tablet 20 mg PO DAILY 0RF sertraline [Zoloft] 100 mg tablet 100 mg PO DAILY 0RF furosemide [Lasix] 40 mg tablet 40 mg PO DAILY 0RF metformin 500 mg tablet 500 mg PO BIDWMEAL 0RF Label Comments: to start 09/16/21 evening. carvedilol [Coreg] 25 mg tablet 25 mg PO BIDWMEAL 0RF atorvastatin [Lipitor] 20 mg tablet 20 mg PO DAILY 0RF Label Comments: supposed to take 09/16/21 evening, unknown ferrous sulfate 325 mg (65 mg iron) Tablet 325 mg PO BID 0RF digoxin [Lanoxin] 125 mcg (0.125 mg) tablet 125 mcg PO DAILY 0RF Rx Instructions: with lunch memantine [Namenda] 10 mg tablet 10 mg PO BID 0RF Jardiance 10 mg tablet 10 mg PO DAILY 0RF Label Comments: to start 09/17/21 Atrovent HFA 17 mcg/actuation Hfa Aerosol Inhaler 2 puff INHALATION TID 0RF Rx Instructions: take first dose 09/16/21 evening Incruse Ellipta 62.5 mcg/actuation blister with device 62.5 inh INHALATION DAILY 0RF Rx Instructions: start date 09/17 Changed albuterol sulfate [ProAir HFA] 90 mcg/actuation HFA aerosol inhaler 90 mcg INHALATION Q4H PRN (Reason: shortness of breath) Qty: 0 0RF Label Comments: every 4 hours as needed. Discontinued losartan [Cozaar] 50 mg tablet 50 mg PO DAILY 0RF amoxicillin-pot clavulanate 875-125 mg tablet 1 tab PO BID 0RF Label Comments: to start 09/16/21 evening, unknown. Discharge Health Status Multidrug resistant organism: No MDRO Precautions: [place] Diet/Activity/Treatments Diet: Diet as Tolerated Liquid consistency: Honey Consistency Food texture: Soft Diet comment: Dysphagia mechanical
[2021-09-20] MEDS: RIVAROXABAN 10 MG TABLET 20 MG PO (08:18)
[2021-09-20] MEDS: LOSARTAN 50 MG TABLET PO (08:18)
[2021-09-20] MEDS: SERTRALINE 50 MG TABLET 100 MG PO (08:19)
[2021-09-20] MEDS: DIGOXIN 0.125 MG TABLET PO (08:20)
[2021-09-20] MEDS: ATORVASTATIN 20 MG TABLET PO (08:20)
[2021-09-20] MEDS: methylPREDNISolone 125 MG/2 ML VIAL 60 MG IV (08:20)
[2021-09-20] MEDS: carvediloL 12.5 MG TABLET 25 MG PO (08:20)
[2021-09-20] MEDS: FUROSEMIDE 40 MG/4 ML VIAL IV (08:20)
--- NOTE | 2021-09-20 08:25 | CM.DPC ---
Addendum entered by MUSA Levine 09/20/21 09:21: ADD: Per [facility], [facility] can transport at 1100 today and SW updated [employer] and RN and provided RN report number. SW called pt's spouse Linda and updated and she was very appreciative and requested SW call and update son Edmund and SW called Edmund and he remains very thankful and agreeable with discharge. BF Original Note: DCP Discharge SNF Per MD, pt is medically stable to d/c to SNF today with no identified barriers to discharge. SW called [facility] and confirmed they can still accept today, they do not need updated COVID as last one was on 09/17/21 and they will call [facility] to determine time for transport. SW updated RN, [employer] INST[employer]ER, and type bar and segment assembler. GEET[facility] faxed d/c summ, signed med rec, scripts, orders, COVID vax info, last COVID swab, PASRR to [facility] to review. Plan: SW to follow for return call from [facility] on confirmation of time of transport and will then call and alert family on what time. MUSA Levine
[2021-09-20] MEDS: MEMANTINE HCL 5 MG TABLET 10 MG PO (08:26)
--- NOTE | 2021-09-20 09:28 | ST.IPDYTX ---
Visit Care Team Role Provider Type Barber Nance MD Other Providers Physician Specialty: Medical Address: Phone: Fax: Email: Dia Palencia MD Other Providers Physician Specialty: Medical Address: Phone: Fax: Email: Mandy Elizalde MD Other Providers Physician Specialty: Orthopedics Orthopedic Surgery Address: [address] [place] [address], [id number] Email: [email or web address] Magui Heath MD Other Providers Physician Specialty: Medical Address: Phone: Fax: Email: Sherif Jesus MD Other Providers Physician Specialty: Medical Address: Phone: Fax: Email: Crystal Masterson MD Other Providers Physician Specialty: Internal Medicine Address: Phone: Fax: Email: Delmar Ahn MD Other Providers Physician Specialty: Medical Address: Phone: Fax: Email: Horacio Ortiz MD Other Providers Physician Specialty: Internal Medicine Address: Phone: Fax: Email: Saleem España MD Other Providers Physician Specialty: Medical Address: Phone: Fax: Email: Edgard Heath MD Other Providers Physician Specialty: Medical Address: Phone: Fax: Email: Erika Coronel MD Other Providers Physician Specialty: Medical Address: Phone: Fax: Email: Aimee Waite Other Providers Physician Specialty: Medical Address: Phone: Fax: Email: Afshin Carroll MD Other Providers Physician Specialty: Medical Address: Phone: Fax: Email: Delmar Meza DO Emergency Provider Physician Referring Provider Specialty: Emergency Medicine Address: [address] [place] [address] Email: [email or web address] Brien Christian MD Admit Provider Physician Attending Provider Specialty: Hospitalist Address: [address] [place] [address] Fax: Email: [email or web address] G[employer] G[employer]F CART REPAIRER Dysphagia Treatment [employer] C[employer] REPAIRER Dysphagia Treatment Start: 09/18/21 09:37 Freq: Status: Active Protocol: Document 09/20/21 09:23 ZS (Rec: 09/20/21 09:27 ZS [id number]) Dysphagia Treatment Session Time Visit Start Time 09:00 Visit Stop Time 09:15 Total Visit Minutes 15 Setting Assessment Location Acute Care Visit Type Note Type Treatment Note Next Note Type Next Note Type Treatment Note Patient Information Identification Type Name,ID Wristband Subjective Observations Mr. Wright is an 81M with PMH CHF, COPD on home O2. The patient was admitted to [facility] last week with weakness and aspiration pneumonia. He was discharged home where he had a fall and brought by EMS to ED. The pt was observed by NSG to have strong cough with sip of thin water this morning and was made NPO pending swallow evaluation. The pt underwent MBSS at [facility] on 09/15/2021 (per phone conversations with [facility] staff and MBSS report that was faxed at this GAS GOLF CART REPAIRER's request). Findings: Oropharyngeal dysphagia with deficits in airway safety and pharyngeal efficiency. Swallow is complicated by suspected osteophyte that is protruding into the pharynx and limiting epiglottic inversion. Airway invasion was diminished with chin down/tuck posture demonstrated by the depth of penetration. Recommendations: Dysphagia mechanical solids, thin liquids, straw ok. Set-up assistance and distant supervision. Environmental cues for swallowing position ( chin tuck). Per phone discussion with an GAS GOLF CART REPAIRER who treated the pt at [facility], the pt had at one time been recommended HTL but refused, which resulted in dehydration. The pt was awake and alert, very [place] but able to repeat this GAS GOLF CART REPAIRER's name after reading from name tag. Pt was positioned upright in bed. 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 He was able to follow oral directions with demonstration during oral peripheral exam and to cough when instructed. Treatment Oral Strategies Upright at 90 degrees, Controlled Bite/Sip Size Pharyngeal Strategies Sitting Upright (90 deg),Chin Tuck,Small Bites and Sips Treatment Activities Provided pt education regarding aspiration, safe swallow strategies, and thick liquids. Assessment Rehab Potential Fair Assessment of Improvement The pt was seated on edge of bed with breakfast tray in front of him. Tray was emptied and pt reported no difficulty eating or drinking food this morning. NSG reported he was enjoying the milk and requested additional milk even though he had milk on his tray. Pt requested water from G[employer] GOL[employer] CART REPAIRER and education was provided regarding swallow safety with thin liquids. Discussed use of thickened juice as alternative to water and pt was agreeable. Recommended continue current diet of honey thick liquids and dysphagia mechanical solids for swallow safety. Diet orders to be advanced based on MD recommendations. Diet Recommendations Recommendations Continue Current Diet Liquids Order Honey Diet Order Dysphagia Mechanical Additional Dietary Needs Reminders to Use Strategies Aspiration Precautions Recommended Precautions Upright at 90 Degrees,Small Bites/Sips,Chin Tuck Treatment Plan Appropriate for Continued Therapy Yes Therapy Recommendations Monitor for pt tolerance of current diet orders and possible advancement of diet following MD orders. Dysphagia Goals 1. The pt will follow safe swallow strategies with verbal /visual prompts as needed. 2. The pt will tolerate least restrictive diet to meet his nutrition and hydration needs.
--- NOTE | 2021-09-20 10:46 | PT.IPTN ---
Current Diagnoses Acute respiratory failure with hypercapnia (09/17/21) Pain in right hip (09/17/21) Hypoxemia (09/17/21) Unspecified fall, initial encounter (09/17/21) Physical Therapy Treatment Note M2 PT-IP Current Condition Start: 09/18/21 08:24 Freq: NEEDED Status: Discharge Protocol: Document 09/20/21 10:14 SP (Rec: 09/20/21 16:15 SP [id number]) Physical Therapy Current Condition Current Condition Evaluation Date 09/18/21 Treatment Diagnosis respiratory failure, encephalopathy; impaired mobility and gait Onset Date 09/16/21 M3 PT-IP Subjective Start: 09/18/21 08:24 Freq: NEEDED Status: Discharge Protocol: Document 09/20/21 10:14 SP (Rec: 09/20/21 16:15 SP [id number]) Subjective Physical Therapy Visit Type Type Treatment Note Visit Start Time 10:14 Visit Stop Time 10:46 Total Visit Minutes 32 Notes Vitals taken during: supine: 155/66 HR 56 seated: 147/ 63 HR 62 SaO2 95% on RA Post mobility: 164/70 *Afib noted during tx on telemetry. Number of SAMPLE TESTER Visits 2 Physical Therapy Visit Comments Patient Comments Pt agreeable to working with therapy. Patient Goals Not stated. Therapy Pain Assessment Pain When Pain Assessed During Mobility Pain Present Pain Present Pain Reported Location Back Intensity 7 Scale Used 7/10 at rest, 7-8/10 with mobility Description With Movement Pain Behaviors Facial Grimacing,Moaning Pain Management Techniques Distraction,Modification of Treatment,Re-positioning M4 PT-IP Mobility and Gait Start: 09/18/21 08:24 Freq: NEEDED Status: Discharge Protocol: Document 09/20/21 10:14 SP (Rec: 09/20/21 16:15 SP [id number]) PT-Bed Mobility Assessment Supine to Sit Supine to Sit Contact Guard Assistance,Head of Bed Elevated,Bedrails Scooting Scooting to Edge of Bed Contact Guard Assistance PT-Transfer Assessment Sit to and From Stand Sit to and from Stand Contact Guard Assistance, Minimal Assistance,1 Person Assistance,Use of Upper Extremities Equipment Transfer Assistive Device Gait Belt,Front Wheeled Walker Orthotic/Prosthetic Devices or Brace: No Transfers Transfer Destination Chair Transfer Technique pt ambulated with FWW Transfer Ability Level of Assist Contact Guard Assistance,1 Person Assistance,Use of Upper Extremities Comments Mobility Comments Pt make moan sounds throughout tx. States doesn't know why does it when asked. SAMPLE TESTER instructed LE ex premobility warm up: AP and heel slides. Completed elevated supine>sit w/ use bed rail, then scoot to EOB CGA. Sit>stand CGA, cued proper hand placement from bed to stand. SPT bed>chair w/ FWW CGA, SAMPLE TESTER managed IV pole and telemetry throughout tx. Verbal and tactile cues for hand placement reach back slow sit, Min A. SIt>stand gait forward to sink and back 16 ft w/ FWW CGA. Seated rest in chair. Gait to sink 7 ft ascend/descend 3 portable steps using L rail and sink on R, cued full stand quad facilitation, Min A, brief stop stand rest between steps for recovery. Pt returned to chair 7 ft CGA w/ FWW, cued reach back slow descent CG-5%A to sit. Able scoot back fully in chair post cues. Pt legs elevated and chair alarmed and call light and all needs in reach before left. Gait Assessment Gait Gait Assistance Required: Contact Guard Assist,1 Person Assist Distance (Feet) 32 Assistive Devices Assistive Device Gait Belt,Front Wheeled Walker Orthotic/Prosthetic Devices or Brace: No Gait Deviations General Gait Pattern Antalgic,Decreased Stride Length,Decreased Feet Clearance,Flexed Trunk Factors Limiting Gait Function Factors Limiting Gait Function Decreased Activity Tolerance, Decreased Strength,Difficulty Following Directions,Pain,Poor Balance,Poor Safety Awareness Comments Gait Comments Cued upright posture, closer to FWW. Improved foot clearance this tx. Stair Climbing Assessment Evaluation Level of Assist On Stairs Minimal Assistance,1 Person Assistance Devices Stair Climbing Assistive Devices Left Railing,Right Railing Technique/Endurance Stair Climbing Direction Ascend and Descend Stair Climbing Technique Step to Step Number of Steps Climbed 1 Stair Climbing Set # Repetitions (reps) 3 Comments Stair Climbing Comments see mobilty comments for details. PT-Balance Assessment Sitting Balance and Reactions Static Sitting Balance Ability Normal Dynamic Sitting Balance Ability Fair Standing Balance and Reactions Static Standing Balance Ability Fair Dynamic Standing Balance Ability Fair Device Used FWW M5 PT-IP Objective Assessments Start: 09/18/21 08:24 Freq: NEEDED Status: Discharge Protocol: Document 09/18/21 09:45 AW (Rec: 09/18/21 13:28 AW [id number]) Orientation Orientation/Cognition Level of Alertness Confusional State Orientation Name,Year,Situation Language Function Ability Hard of Hearing Safety Awareness Decreased Safety Awareness Memory Description Short Term Impaired Comments Pt was repetitive and tangential in conversation. Gross Range of Motion Lower Extremity ROM Assessment Within Functional Limits Strength Lower Extremity Strength Assessment Bilaterally Impaired Hip 4-/5 Knee 4/5 Sensation Assessment Sensation Gross Sensation WNL Muscle Tone Muscle Tone WNL Yes M6 PT-IP Treatment Start: 09/18/21 08:24 Freq: NEEDED Status: Discharge Protocol: Document 09/20/21 10:14 SP (Rec: 09/20/21 16:15 SP [id number]) Physical Therapy Treatment Exercises Exercises Ankle Pumps,Heel Slides Education Education Provided Safety M7 PT-IP Assessment and Plan Start: 09/18/21 08:24 Freq: NEEDED Status: Discharge Protocol: Document 09/20/21 10:14 SP (Rec: 09/20/21 16:15 SP [id number]) PT Summary Assessment and Plan Potential Rehabilitation Potential Good Status of Condition at Evaluation Evolving Summary Impairments Pain,Strength,Balance, Cognition,Bed Mobility, Transfers,Gait,Activity Tolerance Progress Towards Goals Progressing Toward Goals,Slow Progress due to Pain,Slow Progress due to Activity Tolerance Assessment Summary Pt required CGA throughout mobility w/ FWW, Min A for step mgt. Recommending SNF for increased functional mobility strengthening independence. Goals Bed Mobility Goal Independent Transfer Goal Standby Assistance,Front Wheeled Walker Gait Goal Standby Assistance,Front Wheel Walker Gait Distance 100 Other Goals - up/down 3 steps with B rails SBA Frequency of Treatment Frequency Of Treatment Once a Day Treatment Plan Physical Therapy Treatment Plan Bed Mobility Training,Transfer Training,Gait Training, Therapeutic Exercise,Balance Retraining,Discharge Planning, Hot or Cold Pack,Neuromuscular Re-ed Other Recommendations and Next Treatment check vitals, LE ex, STS's, Focus gait further distance w/ FWW. Precautions Other Precautions falls; hypercarbic (SpO2 target ~92% - check with RN) Recommendations To Nursing Amount of Assist Needed Standby Assistance,1 Person Assist Discharge Recommendations PT Discharge Recommendations SNF Rehab Transportation Needs at Discharge Wheelchair/Cabulance
--- NOTE | 2021-09-20 12:46 | PC.NURSE ---
Addendum entered by Therese Nguyen R.N. 09/20/21 13:42: Patient wearing fall button necklace at discharge. No other belongings to send with patient. Original Note: Patient transferred to [facility] in [place]. Discharge packet given to transport. Report called to . Patient is A/O to self, is calm and cooperative, on RA. IV removed, tele removed.
== END 2021-09-20 13:44 | DRG 189 ==
LOC: ED 10:38 → AC 12:25 → ICU 16:51
PROVIDERS: Nurse Practitioner Family; Admitting Provider Internal Medicine; Emergency Provider Emergency Medicine; Referring Provider Emergency Medicine; Visit Provider Internal Medicine
DX: J96.02 Acute respiratory failure with hypercapnia (principal); J69.0 Pneumonitis due to inhalation of food and vomit; I50.23 Acute on chronic systolic (congestive) heart failure; J44.1 Chronic obstructive pulmonary disease with (acute) exacerbation; G93.40 Encephalopathy, unspecified; I48.20 Chronic atrial fibrillation, unspecified; I11.0 Hypertensive heart disease with heart failure; M25.551 Pain in right hip; M25.461 Effusion, right knee; F32.A Depression, unspecified; E11.9 Type 2 diabetes mellitus without complications; G47.33 Obstructive sleep apnea (adult) (pediatric); W19.XXXA Unspecified fall, initial encounter; Z99.81 Dependence on supplemental oxygen; Z96.641 Presence of right artificial hip joint; Z79.01 Long term (current) use of anticoagulants; Z66 Do not resuscitate; Z79.84 Long term (current) use of oral hypoglycemic drugs
CPT/HCPCS: 36415; 36592; 36600; 70450; 71045; 72192; 73502; 73562; 80048; 80053; 82550; 82805; 82962; 83690; 83735; 83880; 84145; 84484; 85025; 85027; 85610; 85730; 86850; 86900; 86901; 87635; 87797; 92526; 92610; 94660; 94760; 94762; 97116; 97129; 97162; 97166; 97530; 97535; 99285; 99291; 99292; C9803; J1815; J1940; J2270; J2543; J2930